=== PATIENT | female | born 1970 | race Caucasian/White ===

== ENCOUNTER 2017-10-07 06:31 | Observation (INO) | payer BC ==
[2017-10-07 08:25] LABS: ABS Basophils 0.1 10^3/ul (0-0.2); ABS Eosinophils 0.2 10^3/ul (0-0.6); ABS Lymphocytes 2.3 10^3/ul (1.0-4.8); ABS Monocytes 0.6 10^3/ul (0-0.8); ABS Neutrophils 6.5 10^3/ul (1.5-7.7); ABS Nucleated RBC 0 10^3/ul; EGFR Non-African American 84.7 (>60); Eosinophil % 2.4 % (0-6); Hematocrit 42 % (35-47); INR 0.96 (0.77-1.02); Lymphocyte % 23.7 % (25-47); Mean Corpuscular HGB Conc 36 g/dl (31-36); Mean Corpuscular Hemoglobin 32 pg (27-31); Mean Corpuscular Volume 89 fL (80-97); Mean Platelet Volume 9 um3 (7.4-10.4); Nucleated Red Blood Cells % 0; Platelet Count 258 10^3/ul (150-450); Red Cell Distribution Width 13 % (10.5-15); White Blood Count 9.6 10^3/ul (3.5-10.8)
[2017-10-07 08:26] LABS: Urine Appearance Clear; Urine Blood 2+ (Negative); Urine Color Straw; Urine Ketones Negative (Negative); Urine Protein Negative (Negative); Urine Specific Gravity 1.008 (1.010-1.030); Urine Urobilinogen Negative (Negative)
--- NOTE | 2017-10-07 08:46 | RAD ---
INDICATION: Lightheaded with elevated blood pressure COMPARISON: Recent comparison chest x-rays dated October 04, 2009 TECHNIQUE: Single AP portable view of the chest was obtained. FINDINGS: Image quality is compromised due to the relative inferiority of a portable chest x-ray. The heart and mediastinum exhibit normal size and contour. The lungs are grossly clear. There is no evidence of a large pleural effusion. Visualized bones are normal for the patient's age. IMPRESSION: No radiographic evidence for acute cardiopulmonary abnormality on this portable chest x-ray.
[2017-10-07] MEDS ORDERED: Acetaminophen TAB* 325 MG PO PRN (11:35)
[2017-10-07] MEDS ORDERED: Ondansetron INJ* 2 MG/ML VIAL IV PRN (11:35)
[2017-10-07] MEDS ORDERED: Valsartan/HCTZ 320/25(NF) TAB PO SCH (12:00)
[2017-10-07] MEDS: amLODIPine TAB* 5 MG PO SCH (12:30)
[2017-10-07] MEDS: Valsartan TAB* 160 MG PO SCH (12:30)
[2017-10-07] MEDS: Hydrochlorothiazide TAB* 25 MG PO SCH (12:30)
[2017-10-07] MEDS ORDERED: Aspirin Low Dose CHEW TAB* 81 MG PO ONE (15:56)
--- NOTE | 2017-10-07 19:39 | HP ---
CC: Andree Torres NP * HISTORY AND PHYSICAL: DATE OF ADMISSION: 10/07/17 PRIMARY CARE PROVIDER: Andree Torres NP ATTENDING PHYSICIAN WHILE IN THE HOSPITAL: Owen Siddiqui MD * (report dictated by Min James NP). CHIEF COMPLAINT: 1. Dizziness. 2. Not feeling well. 3. Left shoulder discomfort. HISTORY OF PRESENT ILLNESS: Ms. Ramirez is a 47-year-old female patient. She carries a history of hypertension, GERD, IBS, seasonal allergies, history of kidney stones and she has a history of borderline diabetes, at one point though she was on metformin. She comes in to our ER today stating that she was at work today. [place] and she was having an episode of just not feeling well, coming on at work. She felt lightheaded, she felt dizzy , she just felt weak. She did not become nauseated or diaphoretic. She did have an episode of shoulder squeezing and tightness in the left shoulder. She states that she has never had discomfort like this previously and she typically can exercise, although she has not exercised in the last month because of a recent Achilles tendon surgery. She was concerned. Her co-workers summoned EMT who were present at the airport. They checked her blood pressure, it was noted to be 160/110. She states she did not eat this morning. She states the discomfort in the arm kind of came and went. By the time she got here to the hospital, her symptoms had resolved. She denied any associated shortness of breath. She did become diaphoretic though with this. There was concern again because of her symptoms and we were asked to evaluate for admission. PAST MEDICAL HISTORY: Significant for: 1. Hypertension. 2. GERD. 3. IBS. 4. Seasonal allergies. 5. Nephrolithiasis. 6. Borderline diabetes. PAST SURGICAL HISTORY: She has had foot surgery. She had a tubal ligation. She has had the Achilles tendon injections. She has had knee surgery on the left knee. MEDICATIONS: Home meds according to the list provided: 1. Norvasc 5 mg daily at noon. 2. Valsartan/hydrochlorothiazide 1 tablet daily at noon. 3. Anaspaz 0.375 mg p.o. daily. 4. Nexium 40 mg daily. 5. Flovent 1 puff inhaled b.i.d. as needed. ALLERGIES TO MEDICATIONS: Include PENICILLIN. FAMILY HISTORY: Her mother had high blood pressure and diabetes. Father had a history of hypertension and lung cancer. SOCIAL HISTORY: She does not smoke. She does not drink. 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 REVIEW OF SYSTEMS: There is no documented fever. She denies having any significant weight change. There was no double vision. She denies having any ear discharge. There was no rhinorrhea. She denies having any sore throat. There was no thyroid enlargement. She denied having any chest discomfort currently. She does admit to having shoulder discomfort into the left side. She denies any abdominal pain. No nausea, no vomiting. There has been no dysuria. No frequency. There was no seizure. No loss of consciousness. No pruritus and no skin ulcerations. Review of 14 systems completed, all others negative. PHYSICAL EXAMINATION GENERAL: At this time, Ms. Ramirez is a 47-year-old female patient. She appears to be well nourished, well developed. She does not appear to be in any acute distress. VITAL SIGNS: Blood pressure 116/76, pulse 68, respirations 16, O2 sat 95%, temperature 96.8. HEENT: Head atraumatic. Eyes: EOM's intact. Sclerae anicteric, not pale. Throat: Oral mucosa appears to be moist. No oropharyngeal erythema. NECK: Supple. LUNGS: Clear to auscultation. No wheezes, rales or rhonchi. HEART: Sounds S1, S2. Regular rate and rhythm. No murmurs, rubs or gallops. ABDOMEN: Soft, flat, nontender. Bowel sounds present EXTREMITIES: Pulses were 2+ throughout. She is moving all 4 extremities with 5 /5 strength. NEUROLOGIC: The patient is awake, alert, oriented x3. Tongue is midline. Table Hand were equal. No gross focal deficits. SKIN: Intact. LABORATORY DATA/DIAGNOSTIC STUDIES: WBC 9.6, RBC 4.70, hemoglobin 15.0, hematocrit of 42, platelet count 258,00. INR 0.96. Sodium 136, potassium 3.5 , chloride 103, bicarb 27, BUN 17, creatinine 0.73, glucose 127, calcium 9.5, magnesium 2.1, total bilirubin 0.6, AST 22, ALT 36, alk phos 53. CK 92. Troponin 0. CRP 4.3. Albumin 4.3. Beta-HCG less than 0.6. TSH of 3.11. Urine showed 2+ blood, 1+ bacteria. Toxicology screen negative. She had chest x-ray obtained today which revealed no radiographic evidence for acute cardiopulmonary abnormality on the portable x-ray. She had an EKG obtained today which shows a normal sinus rhythm, rate is 62. No ST elevations or T-wave inversions were noted. No previous EKG was noted for comparison. She did have a first degree block. Her MD was slightly increased. Old medical records were reviewed. ASSESSMENT AND PLAN: Ms. Ramirez is a 47-year-old female patient coming into the ED today with complaints of dizziness, nausea and some left shoulder discomfort. We were asked to evaluate for admission. She will be admitted under observation status for: 1. Dizziness. This is multifactorial. She states she just was feeling off, she denies sensation of vertigo. She states she did not feel like she is going to pass out. She states she just feels off. It could be related to the fact that she did not eat anything since last night. In addition, this could also be related to the fact that her blood pressure was 160/110. She is on 3 blood pressure medications. I would recommend taking the combination pill in the morning for her and then amlodipine later in the day, as that certainly may have been the culprit as to why she was not feeling well. At this point though , I will keep her upstairs, cycle her troponins, keep her on telemetry and get orthostatic blood pressures and we will continue to follow. 2. Left shoulder discomfort. Again, this could be an anginal equivalent. She is lower risk. I do think we should cycle her troponins. I had ordered a chemical stress test. She cannot do a treadmill stress test at this point, because of the recent Achilles injection, she is not supposed to be running on this, so at this point, I think to be safe, we will get the chemical stress test as the left shoulder discomfort is concerning particularly with the history of hypertension and diabetes. 3. Hypertension. We will continue meds as prescribed. 4. Irritable bowel syndrome. Continue meds as prescribed. 5. Gastroesophageal reflux disease, continue PPI therapy. 6. History of seasonal allergies, not an active issue currently, will be monitored. 7. History of nephrolithiasis, not an active issue. 8. History of borderline diabetes. I am going to get A1c. 9. DVT prophylaxis, low risk. SCD's have been ordered. 10. Fluids, electrolytes, nutrition. Heart healthy diet, then n.p.o. after midnight. 11. Code status: Full code. TIME SPENT: Time spent on the admission was 60 minutes, greater than half the time was spent [id number] with the patient obtaining my history and physical, other half of the time spent going over the plan of care with the patient and implementing plan of care. I did discuss plan of care with my attending, Dr. Siddiqui, who is in agreement. MIN JAMES, ELIJAH [id number]/[id number] #: [id number] MTDJennifer
--- NOTE | 2017-10-07 22:09 | ED ---
Regis Xavier Tiffany, scribed for Anh Frost MD on 10/07/17 at 0741 . Dizziness - HPI Summary HPI Summary: The patient is a 47 year old F presenting to [facility] accompanied by with a chief complaint of dizziness since 05:00 this morning at work. The patient rates the pain 2/10 in severity. Symptoms aggravated by nothing. Symptoms alleviated by nothing. Patient reports whole facial pain. She denies left shoulder pain and chest pain at the time of evaluation. EMS at patients workplace reported that patients blood pressure was 160/110. Ten minutes later, her blood pressure was 130/90 and then 120/80 right before she left for the Emergency Department. Upon evaluation, patients blood pressure was 123/77. Patient reports feeling pins and needles from her toes to shoulders this morning. She has a history of hypertension and takes Diovan and Lodipine daily in the afternoon. She occasionally checks her blood pressure at home. Her blood pressure has been under control recently. Patient reports that her primary care provider is watching her for diabetes. Patient had a normal stress test and normal echo test 10 years ago. Patient had s/p drainage of retroperitoneal drainage 6 years ago. - History Of Current Complaint Chief Complaint: EDDizziness Stated Complaint: LIGHT HEADED, HIGH BP Time Seen by Provider: 10/07/17 07:09 Hx Obtained From: Patient Onset/Duration: Suddenly - 05:00 this morning Severity Currently: Mild - 2/10 Aggravating Factor(s): Nothing Alleviating Factor(s): Nothing Associated Signs And Symptoms: Positive: Negative - Left shoulder pain, chest pain, Other: - Whole facial pain - Allergies/Home Medications Allergies/Adverse Reactions: Allergies Allergy/AdvReac Type Severity Reaction Status Date / Time Penicillins Allergy Rash Verified 10/07/17 09:12 bee stings Allergy Severe Anaphylatic Uncoded 10/19/15 15:31 Shock SEASONAL ALLERGIES Allergy SINUS AND Uncoded 10/19/15 15:31 EYE PROBLEMS Home Medications: Home Medications Esomeprazole(NF) [NexIUM(NF)] 40 mg PO DAILY 10/07/17 [History Confirmed ] Fluticasone HFA 44 mcg(NF) [Flovent Hfa 44 mcg(NF)] 1 puff INH BID PRN 10/07/17 [History Confirmed 10/07/17] Valsartan/HCTZ 320/25(NF) [Diovan Hct 320/25(NF)] 1 tab PO DAILY@1200 10/07/17 [ History Confirmed 10/07/17] amLODIPine TAB* [Norvasc 5 mg TAB*] 5 mg PO DAILY@1200 10/07/17 [History Confirmed 10/07/17] PMH/Surg Hx/FS Hx/Imm Hx Previously Healthy: No Cardiovascular History: Reports: Hx Hypertension - taking medication, Other Cardiovascular Problems/Disorders - HTN Denies: Hx Pacemaker/ICD Respiratory History: Reports: Hx Asthma - Exercised induced GI History: Reports: Hx Gastroesophageal Reflux Disease - taking medication, Other GI Disorders - Infection of sm. intestione 2 yrs ago History: Reports: Hx Kidney Stones Musculoskeletal History: Reports: Hx Arthritis - LEFT ANKLE, Other Musculoskeletal History Denies: Hx Rheumatoid Arthritis, Hx Osteoporosis Sensory History: Reports: Hx Contacts or Glasses Denies: Hx Hearing Aid Opthamlomology History: Reports: Hx Contacts or Glasses Psychiatric History: Denies: Hx Panic Disorder - Cancer History Cancer Type, Location and Year: Pre-cancerous skin lesions, several episodes, most recent 2010 Hx Chemotherapy: No Hx Radiation Therapy: No - Surgical History Surgery Procedure, Year, and Place: 4 Right knee surgeries, most recent 07/2010 , performed at [facility],. [place] [facility] [place],. [place] [facility] [place] [facility] [place] Rt FOOT - FX Hx Anesthesia Reactions: Yes - N/V- LAST SURGERY- VERY GROGGY, [facility] C&DB Infectious Disease History: No Infectious Disease History: Denies: Traveled Outside the [place] in Last 30 Days - Family History Known Family History: Positive: Cardiac Disease - Father, Hypertension, Diabetes , Other - Father had lung cancer - Social History Alcohol Use: Occasionally Hx Substance Use: No Substance Use Type: Reports: None Hx Tobacco Use: No Smoking Status (MU): Never Smoked Tobacco Review of Systems Negative: Chest Pain Musculoskeletal: Negative - Left shoulder pain Positive: Other - Whole facial pain Neurological: Other - Dizziness All Other Systems Reviewed And Are Negative: Yes Physical Exam - Summary Physical Exam Summary: Appearance: Ill-appearing, moderate pain distress, Well-nourished Skin: Warm, color reflects adequate perfusion Head: Normal Head/Face inspection Eyes: Conjunctiva clear ENT: Normal inspection Neck: Supple, no nodes, no JVD. Respiratory: Lungs clear, Normal breath sounds, no respiratory distress Cardio: RRR, No murmur, pulses normal, brisk capillary refill Abdomen: soft, nontender Bowel sounds: present Musculoskeletal: Strength Intact/ ROM intact. No calf tenderness. No edema. Neuro: A&O x3, CN II-XII intact, Motor function 5/5, Sensations intact, Gait WNL Psychological: Normal Triage Information Reviewed: Yes Vital Signs On Initial Exam: Initial Vitals Temp Pulse Resp BP Pulse Ox 96.8 F 75 18 133/86 97 10/07/17 06:33 10/07/17 06:33 10/07/17 06:33 10/07/17 06:33 10/07/17 06:33 Vital Signs Reviewed: Yes Diagnostics - Vital Signs Vital Signs Temp Pulse Resp BP Pulse Ox 10/07/17 07:00 67 17 115/72 95 10/07/17 06:59 66 15 95 10/07/17 06:57 122/79 10/07/17 06:33 96.8 F 75 18 133/86 97 - Laboratory Lab Results: Lab Results 10/07/17 10/07/17 10/07/17 Range/Units 07:50 07:50 07:50 WBC 9.6 (3.5-10.8) 10^3/ul RBC 4.70 (4.0-5.4) 10^6/ul Hgb 15.0 (12.0-16.0) g/dl Hct 42 (35-47) % MCV 89 (80-97) fL MCH 32 H (27-31) pg MCHC 36 (31-36) g/dl RDW 13 (10.5-15) % Plt Count 258 (150-450) 10^3/ul MPV 9 (7.4-10.4) um3 Neut % (Auto) 67.3 (38-83) % Lymph % (Auto) 23.7 L (25-47) % [place] % (Auto) 6.1 (1-9) % Eos % (Auto) 2.4 (0-6) % Baso % (Auto) 0.5 (0-2) % Absolute Neuts (auto) 6.5 (1.5-7.7) 10^3/ul Absolute Lymphs (auto) 2.3 (1.0-4.8) 10^3/ul Absolute Monos (auto) 0.6 (0-0.8) 10^3/ul Absolute Eos (auto) 0.2 (0-0.6) 10^3/ul Absolute Basos (auto) 0.1 (0-0.2) 10^3/ul Absolute Nucleated RBC 0 10^3/ul Nucleated RBC % 0 INR (Anticoag Therapy) (0.77-1.02) Sodium 136 (133-145) mmol/L Potassium 3.5 (3.5-5.0) mmol/L Chloride 103 (101-111) mmol/L Carbon Dioxide 27 (22-32) mmol/L Anion Gap 6 (2-11) mmol/L BUN 17 (6-24) mg/dL Creatinine 0.73 (0.51-0.95) mg/dL Est GFR ( Amer) 109.0 (>60) Est GFR (Non-Af Amer) 84.7 (>60) BUN/Creatinine Ratio 23.3 H (8-20) Glucose 127 H (70-100) mg/dL Calcium 9.5 (8.6-10.3) mg/dL Magnesium 2.1 (1.9-2.7) mg/dL Total Bilirubin 0.60 (0.2-1.0) mg/dL AST 22 (13-39) U/L ALT 36 (7-52) U/L Alkaline Phosphatase 53 (34-104) U/L Total Creatine Kinase 92 (10-223) U/L Troponin I 0.00 (<0.04) ng/mL C-Reactive Protein 4.38 (< 5.00) mg/L Total Protein 6.9 (6.4-8.9) g/dL Albumin 4.3 (3.2-5.2) g/dL Globulin 2.6 (2-4) g/dL Albumin/Globulin Ratio 1.7 (1-3) TSH 3.11 (0.34-5.60) mcIU/mL Beta HCG, Quant < 0.60 mIU/mL Urine Color Straw Urine Appearance Clear Urine pH 6.0 (5-9) Ur Specific [place] 1.008 L (1.010-1.030) Urine Protein Negative (Negative) Urine Ketones Negative (Negative) Urine Blood 2+ H (Negative) Urine Nitrate Negative (Negative) Urine Bilirubin Negative (Negative) Urine Urobilinogen Negative (Negative) Ur Leukocyte Esterase Negative (Negative) Urine WBC (Auto) Trace(0-5/hpf) (Absent) Urine RBC (Auto) Trace(0-2/hpf) (Absent) Ur Squamous Epith Cells Present H (Absent) Urine Bacteria 1+ H (Absent) Urine Glucose Negative (Negative) Urine Opiates Screen (None Detect) Ur Barbiturates Screen (None Detect) Ur Phencyclidine Scrn (None Detect) Ur Amphetamines Screen (None Detect) U Benzodiazepines Scrn (None Detect) Urine Cocaine Screen (None Detect) U Cannabinoids Screen (None Detect) 10/07/17 10/07/17 Range/Units 07:50 07:50 WBC (3.5-10.8) 10^3/ul RBC (4.0-5.4) 10^6/ul Hgb (12.0-16.0) g/dl Hct (35-47) % MCV (80-97) fL MCH (27-31) pg MCHC (31-36) g/dl RDW (10.5-15) % Plt Count (150-450) 10^3/ul MPV (7.4-10.4) um3 Neut % (Auto) (38-83) % Lymph % (Auto) (25-47) % [place] % (Auto) (1-9) % Eos % (Auto) (0-6) % Baso % (Auto) (0-2) % Absolute Neuts (auto) (1.5-7.7) 10^3/ul Absolute Lymphs (auto) (1.0-4.8) 10^3/ul Absolute Monos (auto) (0-0.8) 10^3/ul Absolute Eos (auto) (0-0.6) 10^3/ul Absolute Basos (auto) (0-0.2) 10^3/ul Absolute Nucleated RBC 10^3/ul Nucleated RBC % INR (Anticoag Therapy) 0.96 (0.77-1.02) Sodium (133-145) mmol/L Potassium (3.5-5.0) mmol/L Chloride (101-111) mmol/L Carbon Dioxide (22-32) mmol/L Anion Gap (2-11) mmol/L BUN (6-24) mg/dL Creatinine (0.51-0.95) mg/dL Est GFR ( Amer) (>60) Est GFR (Non-Af Amer) (>60) BUN/Creatinine Ratio (8-20) Glucose (70-100) mg/dL Calcium (8.6-10.3) mg/dL Magnesium (1.9-2.7) mg/dL Total Bilirubin (0.2-1.0) mg/dL AST (13-39) U/L ALT (7-52) U/L Alkaline Phosphatase (34-104) U/L Total Creatine Kinase (10-223) U/L Troponin I (<0.04) ng/mL C-Reactive Protein (< 5.00) mg/L Total Protein (6.4-8.9) g/dL Albumin (3.2-5.2) g/dL Globulin (2-4) g/dL Albumin/Globulin Ratio (1-3) TSH (0.34-5.60) mcIU/mL Beta HCG, Quant mIU/mL Urine Color Urine Appearance Urine pH (5-9) Ur Specific [place] (1.010-1.030) Urine Protein (Negative) Urine Ketones (Negative) Urine Blood (Negative) Urine Nitrate (Negative) Urine Bilirubin (Negative) Urine Urobilinogen (Negative) Ur Leukocyte Esterase (Negative) Urine WBC (Auto) (Absent) Urine RBC (Auto) (Absent) Ur Squamous Epith Cells (Absent) Urine Bacteria (Absent) Urine Glucose (Negative) Urine Opiates Screen None detected (None Detect) Ur Barbiturates Screen None detected (None Detect) Ur Phencyclidine Scrn None detected (None Detect) Ur Amphetamines Screen None detected (None Detect) U Benzodiazepines Scrn None detected (None Detect) Urine Cocaine Screen None detected (None Detect) U Cannabinoids Screen None detected (None Detect) Result Diagrams: 10/07/17 07:50 10/07/17 07:50 Lab Statement: Any lab studies that have been ordered have been reviewed, and results considered in the medical decision making process. - Radiology CXR Radiology Interpretation Completed By: Radiologist - No radiographic evidence for acute cardiopulmonary abnormality on this portable chest x-ray. ED physician has reviewed this radiology report. - EKG 07:40 Cardiac Rate: NL EKG Rhythm: Sinus Rhythm - [address] Segment: Non-Specific Ectopy: None EKG Interpretation: Prolonged AV conduction time (216). Nml IVCT, nml QTc, nml axis. Non-STEMI. EKG Comparison: No Significant Change - No prior to compare Re-Evaluation - Re-Evaluation First Eval Re-Evaluation Time: 10:00 Change: Unchanged Comment: Patients blood pressure has improved. She is made aware that she may need to stay longer to get second troponin test. Patient complains of headache. Dizzy Course/Dx - Course Course Of Treatment: Allergies noted. High blood pressure noted. Patient medications reviewed this visit. EKG reveals prolonged AV conduction time (216) . No prior to compare. Dr. Garcia (interventionalist cardiology) at 0804 advised that patient is non-STEMI. CXR reveals, per radiologist, No radiographic evidence for acute cardiopulmonary abnormality on this portable chest x-ray. - Provider Notifications Discussed Care Of Patient With: Brenda Garcia Time Discussed With Above Provider: 08:04 Instructed by Provider To: Other - Dr. Garcia (interventionalist cardiology) at 0804 advised that patient is non-stemi. Discharge - Discharge Plan Condition: Stable Disposition: ADMITTED TO [facility] documentation as recorded by the Regis castro Tiffany accurately reflects the service I personally performed and the decisions made by , Anh Frost MD.
[2017-10-08 06:55] LABS: ABS Basophils 0.1 10^3/ul (0-0.2); ABS Eosinophils 0.3 10^3/ul (0-0.6); ABS Lymphocytes 2.9 10^3/ul (1.0-4.8); ABS Monocytes 0.6 10^3/ul (0-0.8); ABS Neutrophils 4.6 10^3/ul (1.5-7.7); ABS Nucleated RBC 0 10^3/ul; Eosinophil % 3.9 % (0-6); Hematocrit 42 % (35-47); Hemoglobin 14.8 g/dl (12.0-16.0); Lymphocyte % 34.1 % (25-47); Mean Corpuscular HGB Conc 35 g/dl (31-36); Mean Corpuscular Hemoglobin 32 pg (27-31); Mean Corpuscular Volume 90 fL (80-97); Mean Platelet Volume 9 um3 (7.4-10.4); Nucleated Red Blood Cells % 0; Platelet Count 275 10^3/ul (150-450); Red Blood Count 4.69 10^6/ul (4.0-5.4); Red Cell Distribution Width 13 % (10.5-15); White Blood Count 8.5 10^3/ul (3.5-10.8)
[2017-10-08 07:12] LABS: EGFR Non-African American 73.1 (>60)
[2017-10-08] MEDS ORDERED: Omeprazole CAP* 20 MG PO SCH (07:30)
[2017-10-08] MEDS ORDERED: Aspirin EC Low Dose* 81 MG TAB.EC PO SCH (09:00)
[2017-10-08] MEDS ORDERED: Hyoscyamine TAB* 0.125 MG PO SCH ×2 (09:00)
[2017-10-08 11:06] VITALS: BP 113/73
--- NOTE | 2017-10-08 11:06 | RAD ---
Edited for charges. INDICATION: Chest and left shoulder pain COMPARISON: Chest x-ray October 07, 2017 TECHNIQUE: SPECT imaging was performed. Rest images were acquired following the intravenous injection of 10.2 millicuries of technetium 99m tetrofosmin at 0650 hours. At 1000 hours stress images were acquired following the intravenous administration of 25.32 millicuries of technetium 99m tetrofosmin. The patient received intravenous Lexiscan prior to the stress image acquisition. FINDINGS: There are no defects of the stress-induced or fixed nature. The cardiac chamber size is normal. There are no wall motion abnormalities. The ejection fraction is calculated at 74% during stress. IMPRESSION: No scintigraphic evidence of ischemia or infarction. ASSESSMENT: Low risk Based on imaging criteria from ACC/AHA 2002 Guideline Update for the Management of Patients With Chronic Stable Angina Table 23. Noninvasive Risk Stratification. MTDD
[2017-10-08] MEDS: amLODIPine TAB* 5 MG PO SCH (11:32)
[2017-10-08] MEDS: Hydrochlorothiazide TAB* 25 MG PO SCH (11:32)
[2017-10-08] MEDS: Valsartan TAB* 160 MG PO SCH (11:32)
[2017-10-08] MEDS ORDERED: Regadenoson* 0.4 MG/5 ML SYRINGE ONE (14:38)
--- NOTE | 2017-10-09 03:02 | DS ---
CC: Andree Torres NP * DISCHARGE SUMMARY: DATE OF ADMISSION: DATE OF DISCHARGE: 10/08/17 HISTORY: This 47-year-old woman presented with left shoulder discomfort, dizziness, some tingling of her entire body [place] the [place] a part-time job. She came promptly to the hospital. She still had some shoulder discomfort and tingling throughout the day. This has never happened to her before. I note she does not do any regular exercise. She has never smoked. She has not had similar problems in the past. She had no further problems in the hospital. She was admitted to a telemetry unit, 3 troponins were done and were all normal. She had a nuclear medicine stress test, which showed no evidence of ischemia or infarction. Ejection fraction was normal on the nuclear scan. She was noted to have some bradycardia while she was sleeping. Blood pressure on the morning of discharge was 115/73. FINAL DIAGNOSES: 1. Atypical chest and shoulder pain. 2. Hypertension. 3. Gastroesophageal reflux disease. 4. Irritable bowel syndrome. DISCHARGE MEDICATIONS: 1. Hyoscyamine 0.375 mg daily. 2. Amlodipine 5 mg daily. 3. Valsartan hydrochlorothiazide 320/25 one daily. 4. Fluticasone HFA 44 mcg 1 puff b.i.d. p.r.n. 5. Esomeprazole 40 mg daily. [id number]/[id number] #: [id number] MTDD
== END 2017-10-08 14:45 | disposition home or self-care (01) ==
LOC: ED 06:31 → MEDTELE 11:30
PROVIDERS: ADMIT Internal Medicine; ATTEND Internal Medicine
DX: R07.89 Other chest pain (principal); M25.512 Pain in left shoulder; R42 Dizziness and giddiness; I10 Essential (primary) hypertension; K58.9 Irritable bowel syndrome, unspecified; K21.9 Gastro-esophageal reflux disease without esophagitis; J30.2 Other seasonal allergic rhinitis; Z87.442 Personal history of urinary calculi
CPT/HCPCS: 36415; 71045; 78452; 80048; 80053; 80061; 80307; 81003; 81015; 82550; 83036; 83735; 84443; 84484; 84702; 85025; 85610; 86140; 87086; 93005; 93017; 96374; 99284; A9270-GY; A9502; G0378; J2785

== ENCOUNTER 2018-08-06 16:36 | Emergency (ER) | payer BC ==
[2018-08-06 17:05] VITALS: BP 130/80
--- NOTE | 2018-08-06 17:20 | UC ---
Throat Pain/Nasal Mitchell HPI - HPI Summary HPI Summary: 48-year-old female comes in with a chief complaint of runny nose nasal congestion and yellow rhinorrhea going on for 3 weeks. She's tried over-the- counter remedies which helped some but then she gets worse again. She is having some sinus pressure. No chest congestion. She's not smoker. Patient reports she's having continued right thumb pain that occurred some time ago while she was throwing an item and it injured her right thumb. Pain is worse on the radial aspect of the PIP of the right thumb. No skin break no weakness or numbness. She recently got a thumb spica splint which does help with the pain. - History of Current Complaint Chief Complaint: UCGeneralIllness Stated Complaint: LT EYE,RT THUMB,SINUS COMPLAINT Time Seen by Provider: 08/06/18 17:03 Hx Last Menstrual Period: 09/21/15 Pain Intensity: 8 - Allergies/Home Medications Allergies/Adverse Reactions: Allergies Allergy/AdvReac Type Severity Reaction Status Date / Time Penicillins Allergy Rash Verified 08/06/18 17:05 bee stings Allergy Severe Anaphylatic Uncoded 08/06/18 17:05 Shock SEASONAL ALLERGIES Allergy SINUS AND Uncoded 08/06/18 17:05 EYE PROBLEMS Home Medications: Home Medications Irbesartan/Hydrochlorothiazide [Irbesartan-Hctz 150-12.5 mg Tb] 1 each PO DAILY 08/06/18 [History Confirmed 08/06/18] PMH/Surg Hx/FS Hx/Imm Hx Previously Healthy: Yes - Surgical History Surgical History: Yes Surgery Procedure, Year, and Place: 4 Right knee surgeries, most recent 07/2010 , performed at [facility],. [place] [facility] [place],. cyst [place] [facility] [place] [facility] [place] Rt FOOT - FX - Family History Known Family History: Positive: None, Cardiac Disease - Father, Hypertension, Diabetes, Other - Father had lung cancer - Social History Alcohol Use: Occasionally Substance Use Type: None Smoking Status (MU): Never Smoked Tobacco - Immunization History Most Recent Influenza Vaccination: 2016 Most Recent Tetanus Shot: unknown Most Recent Pneumonia Vaccination: unknown Review of Systems All Other Systems Reviewed And Are Negative: Yes Constitutional: Positive: Negative Skin: Positive: Negative Eyes: Positive: Negative ENT: Positive: Sore Throat, Nasal Discharge, Sinus Congestion, Sinus Pain/ Tenderness Respiratory: Positive: Negative Cardiovascular: Positive: Negative Gastrointestinal: Positive: Negative Motor: Positive: Negative Neurovascular: Positive: Negative Musculoskeletal: Positive: Other: - SEE HPI Neurological: Positive: Negative Psychological: Positive: Negative Is Patient Immunocompromised?: No Physical Exam Triage Information Reviewed: Yes Appearance: No Pain Distress, Well-Nourished, Ill-Appearing - MILD Vital Signs: Initial Vital Signs Temp 98.5 F 08/06/18 17:00 Pulse 73 08/06/18 17:00 Resp 16 08/06/18 17:00 BP 130/80 08/06/18 17:00 Pulse Ox 98 08/06/18 17:00 Vital Signs Reviewed: Yes Eye Exam: Normal Eyes: Positive: Conjunctiva Clear ENT: Positive: Pharyngeal erythema, Nasal congestion, Nasal drainage, TMs normal Neck exam: Normal Neck: Positive: Supple Respiratory: Positive: Lungs clear, Normal breath sounds, No respiratory distress Cardiovascular: Positive: RRR Musculoskeletal: Positive: Other: - 5 out of 5. Right thumb is tender to palpation on the radial aspect of the PIP and she has pain when she is attempting to abduct the thumB. Thumb has full range of motion normal capillary refill no sensation deficit. Neurological Exam: Normal Neurological: Positive: Alert, Muscle Tone Normal Psychological Exam: Normal Psychological: Positive: Age Appropriate Behavior Skin Exam: Normal Throat Pain/Nasal Course/Dx - Course Course Of Treatment: Order Information: THUMB RIGHT. Accession Number: [id number]. CPT: 65110. INDICATION: Thumb pain since injury February 2018. COMPARISON: None. TECHNIQUE: 3 views of the right thumb were obtained. FINDINGS: The bones are normal alignment. Joint spaces appear maintained. No fracture is. seen. IMPRESSION: There is no radiographically apparent fracture or dislocation involving the. right thumb. If the patient's symptoms persist, follow-up imaging is recommended. . <Electronically signed by John Vences MD in OV> 08/06/18 1801. Patient is allergic to penicillin. SHe reports that azithromycin helps her and therefore I prescribed azithromycin. I'm suspecting a lateral collateral ligament injury of the right thumb and I recommended follow-up with orthopedics hands. Patient has a thumb spica splint she's been wearing she can continue to use that. - Differential Dx/Diagnosis Provider Diagnosis: Conjunctivitis, Sinusitis, Sprain of right thumb Discharge - Sign-Out/Discharge Documenting (check all that apply): Patient Departure All imaging exams completed and their final reports reviewed: Yes - Discharge Plan Condition: Stable Disposition: HOME Prescriptions: Azithromyxin GET (NF) [Z-Get (Zithromax) 250 mg tabs #6] 2 tab PO .TODAY, THEN 1 DAILY #6 tab Tobramycin 0.3% OPHTH.TABITHA* 1 drop LEFT EYE Q4H #1 btl Patient Education Materials: Skier's Thumb (ED), Sinusitis (ED), Finger Sprain (ED), Conjunctivitis (ED) Referrals: Andree Torres NP [Primary Care Provider] - Alanis De Leon MD [Medical Doctor] - Additional Instructions: FOLLOW UP WITH ORTHOPEDICS FOR YOUR RIGHT THUMB INJURY. FOLLOW UP WITH YOUR PRIMARY CARE DOCTOR IF NOT COMPLETELY IMPROVED. GET RECHECKED FOR ANY WORSENING OF YOUR CONDITION OR QUESTIONS OR CONCERNS. - Billing Disposition and Condition Condition: STABLE Disposition: Home
== END 2018-08-06 17:34 | disposition home or self-care (01) ==
LOC: UCCORT 16:36
DX: H10.9 Unspecified conjunctivitis (principal); J32.9 Chronic sinusitis, unspecified; S63.601A Unspecified sprain of right thumb, initial encounter; Z88.2 Allergy status to sulfonamides; X50.0XXA Overexertion from strenuous movement or load, initial encounter; Y92.9 Unspecified place or not applicable
CPT/HCPCS: 99212; G0463

== ENCOUNTER 2018-08-21 10:16 | Emergency (ER) | payer BC ==
--- OUTSIDE RECORDS SUMMARY | 2018-08-21 10:22 | XMS REPORT | Continuity of Care Document ---
:1970 External Reference #:[id number] Author Name Coleen Griffith Care Team Providers Name Role Phone Andree Torres NP Primary Care Physician Unavailable Payers Type Date Identification Numbers Payment Provider Subscriber Effective: Policy Number: [id number] BS Facets Homa Ramiresnett 2011 PayID: [id number] [address] [address] [place] [address] Effective: 2010 Policy Number: [id number] BS Of [employer]ear Homa Ramirez Expires: 2011 Group Number: [id number] [address] [address] PayID: [id number] [place] [address] Advance Directives Type Date Description Status Comment Other Directive 02/04/2014 Health Care Proxy Current and Verified Problems Date Description Provider Status Onset: 04/09/2011 Impaired fasting glycaemia Andree Torres, N.P. Active Onset: 04/09/2011 Asthma without status asthmaticus Andree Torres, N.P. Active Onset: 06/06/2015 Essential hypertension Andree Torres, N.P. Active Onset: 08/01/2015 Localized, primary osteoarthritis Bouchra Elizabeth M.D. 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-BC Onset: 12/27/2017 Hypersomnia María Cooley DNP, MIHAI, Active ECHOCARDIOGRAPH TECHNICIAN-BC Onset: 12/27/2017 Body mass index 30+ - obesity María Cooley DNP, RN, Active ECHOCARDIOGRAPH TECHNICIAN-BC Family History Date Family Member(s) Problem(s) Comments General Cancer General Diabetes General COPD : (age 52 Father due to Cancer, Years) Lung Father Hypertension Mother HTN DM age 70 Children 2 1 Daughter - Healthy age 21 1 Daughter - Healthy age 19 Siblings 1 1 Brother - HTN, thyroid disease Social History Type Date Description Comments Sex Unknown Marital Status Lives With 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 [employer] Tobacco Use Start: Unknown Never Smoked Cigarettes ETOH Use Occasionally consumes socially once per beer month Tobacco Use Start: Unknown Patient has never smoked Recreational Drug Use Denies Drug Use Tobacco Use Start: Unknown Secondhand smoke As a child, to age exposure 18 Smoking Status Reviewed: 08/08/18 Secondhand smoke As a child, to age exposure 18 Exercise Type/Frequency Exercises sporadically Allergies, Adverse Reactions, Alerts Date Description Reaction Status Severity Comments 04/27/2010 Penicillin HANDS ON FIRE FEELING Active Severe 04/27/2010 Bee Sting Active Medications Medication Date Status Form Strength Qnty SIG Indications Ordering Provider Irbesartan-Hyd 03/25 Active Tablets 300-12.5mg 90tab 1 by mouth Andree rochothiaz s every day Varn, N.P. de Metformin HCL 02/21 Active Tablets 500mg 60tab take one Z68.35 s tablet by Varn, N.P. mouth twice a day Flovent HFA 02/06 Active Aerosol 44mcg/Act 1unit 2 puffs J45.30 s twice Varn, N.P. daily Epipen 2-Get 01/10 Active Solution 0.3mg/0.3ML 2unit use as Auto-Inject s needed for Varn, N.P. bee sting. Ventolin HFA 12/05 Active Aerosol 108(90Base) 1inha 1 to 2 J45.30 mcg/Act ler inhalation Varn, N.P. s every 4 hours as needed Hyoscyamine 08/13 Active Tablets ER 0.375mg 90tab 1 po qd Andree Sulfate ER /2012 12HR s Varn, N.P. Fluticasone 08/13 Active Suspension 50mcg/Act 16gm 1 - 2 J06.9 Andree Propionate sprays Varn, N.P. each nostril daily as needed Valtrex 06/26 Active Tablets 1gm 12tab 2 tablets s by mouth Varn, N.P. and repeat in 12 hours prn Amlodipine 08/01 Active Tablets 5mg 90tab take 1 I10 Sheyla Besylate s tablet Cotton, daily M.D. Nexium 07/[address] 40mg 30cap take 1 Dee s capsule by Yola, mouth once M.D., FACP daily Diovan HCT 07/06 Hx Tablets 320-25mg 90tab 1 by mouth s every day Varn, N.P. - 07/18 Cipro 07/03 Hx Tablets 250mg 14tab one by Andree /2016 s mouth Varn, N.P. - twice 07/06 daily 7 days Proair HFA 12/05 Hx Aerosol 108(90Base) 1unit 1 to 2 J45.30 mcg/ac s inhalation Yola, - s before M.D., FACP 02/06 exercise or prn Contour Test 06/16 Hx 100un Test its fasting Varn, N.P. - and 2 10/14 hours after dinner. Singulair 12/03 Hx Tablets 10mg 30tab 1 by mouth 477.9 s every day Varn, N.P. - 07/18 Biaxin 01/06 Hx Tablets 500mg 20tab 1 tab po 461.0 Nikia s bid Ernie Osman M.D. 01/13 Nasonex 01/06 Hx Suspension 50mcg/Act 1unit 2 sp nasal 461.0 Nikia s every day Ernie Osman M.D. 08/13 Valsartan-Hydr 12/21 Hx Tablets 320-25mg 90tab take 1 Dee ochlorothiazid s tablet Yola, e - daily M.D., FACP 03/25 Flovent HFA 06/26 Hx Aerosol 44mcg/Act 1unit 2 puffs 493.90 s twice Varn, N.P. - daily 08/13 Azithromycin 09/04 Hx Tablets 250mg 6tabs two tabs 461.9 day one, Yola, - one daily M.D., FACP 09/14 till Proair HFA 09/04 Hx Aerosol 108(90Base) 1unit 1 to 2 461.9 mcg/ac s inhalation Yola, - s before M.D., FACP 08/13 exercise or prn Fluticasone 09/04 Hx Suspension 50mcg/Act 1Mont 2 sprays 461.9 Dee Propionate h each Yola, - nostril M.D., FACP 07/28 daily needed Nexium 04/[address] 20mg 90cap 1 po qd s Ernie Aceves M.D., FACP 07/09 Ciprofloxacin 04/09 Hx Tablets 500mg 20tab one by Dee HCL s mouth Yola, - twice M.D., FACP 04/19 daily for 10 days Metronidazole 04/09 Hx Tablets 500mg 21tab one tablet s by mouth 3 Yola, - times M.D., FACP 04/16 daily for 7 days Diovan HCT 12/15 Hx Tablets 320-25mg 90tab Take 1 s Tablet Yola, - Daily M.D., FACP 12/21 Valtrex 10/27 Hx Tablets 1gm 21tab one po tid s for 7 days Ernie Aceves M.D., FACP 06/25 Diflucan 10/24 Hx Tablets 150mg 2tabs sig 1 po repeat in Yola, - 3 days if M.D., FACP 10/30 needed Lidocaine HCL 10/24 Hx Gel 2% 30ml apply prn Dee Jelly Ernie Aceves M.D., FACP 06/25 Contour Test 01/26 Hx 100un use as Andree Strips its directed Varn, N.P. - 06/15 Lancets 01/26 Hx Contour 100un use as Dee Glucometer its directed Ernie Aceves M.D., [facility] 10/14 Epipen Auto 01/26 Hx Device 2unit prn bee Andree Injector /2009 s sting Varn, N.P. - 02/23 Diovan HCT 01/26 Hx Tablets 160-12.5mg 90tab 1 tablet s daily Yola, - M.D., [facility] 12/15 Advair Diskus 01/26 Hx Aerosol 250-50mcg/D 1unit 1 puff ose s twice a Yola, - day M.D., [facility] 04/09 Singulair 01/26 Hx Tablets 10mg 30tab 1 tablet s daily Yola - M.DJolanta, [facility] 04/09 Nasacort Aq 01/26 Hx Aerosol 55mcg/Act 1unit use 1 s sprays in Yola, - each M.D., [facility] 04/09 nostril /2010 Twice A Day Pantoprazole 01/26 Hx 40mg 1 capsule Dee Sodium daily as Yola - needed M.D., [facility] 04/09 Metformin ER 01/26 Hx 500mg 30uni 1 Tablet Sheyla /2010 ts with Cotton, - dinner M.D. 07/28 Xyzal 01/26 Hx 5mg 30uni 1 tablet ts daily Yola - M.Jennifer., [facility] 06/25 Xifaxan Hx Tablets 550mg 42tab 1/2 tablet Unknown /0000 s by mouth - twice 04/09 Ciprofloxacin Hx Tablets 500mg one by Unknown HCL /0000 mouth - twice 02/06 daily for 5 days Esomeprazole Hx Capsules DR 40mg 1 by mouth Unknown Magnesium /0000 every day - 09/25 Immunizations CPT Code Status Date Vaccine Reaction Lot # [id number] Given 05/24/2017 Influenza Virus Vaccine, Quadrivalent, Split, Preservative Free [id number] Given 06/06/2016 Influenza Virus Vaccine, no reaction noted ... [id number] Quadrivalent, Split Virus, [place] [id number] Given 05/20/2015 Influenza Virus Vaccine, Quadrivalent, Split, Preservative Free [id number] Given 05/21/2014 Fluvirin Im 3Yrs And Older 42327 Given 07/28/2012 Tdap - [id number] Tetanus/Diptheria/Acellular Pertussis Q2037 Given 06/26/2012 Fluvirin Im 3Yrs And Older [id number] Given 06/25/2011 Pneumonia Vaccine [id number] 27932 Given 10/27/2009 Influenza Virus Vaccine, Pandemic Formulation 44152 Given 10/27/2009 Administration Swine Flu Shot Vital Signs Date Vital Result Comment 08/08/2018 3:43pm Height 68.5 inches 5'8.50" Weight 217.50 lb Heart Rate 88 /min BP Systolic 112 mmHg BP Diastolic 74 mmHg Body Temperature 97.7 F O2 % BldC Oximetry 95 % BMI (Body Mass Index) 32.6 kg/m2 05/27/2018 2:34pm Height 68.5 inches 5'8.50" Weight 219.38 lb Heart Rate 72 /min BP Systolic Sitting 120 mmHg Rue large cuff BP Diastolic Sitting 78 mmHg Rue large cuff Respiratory Rate 14 /min O2 % BldC Oximetry 97 % On Ra BMI (Body Mass Index) 32.9 kg/m2 03/25/2018 10:09am Height 68.5 inches 5'8.50" Weight 224.00 lb Heart Rate 78 /min BP Systolic 100 mmHg BP Diastolic 60 mmHg Body Temperature 97.5 F O2 % BldC Oximetry 97 % BMI (Body Mass Index) 33.6 kg/m2 02/24/2018 8:19am Height 68.5 inches 5'8.50" Weight 224.50 lb Heart Rate 72 /min BP Systolic Sitting 112 mmHg Rue large cuff BP Diastolic Sitting 76 mmHg Rue large cuff Respiratory Rate 16 /min O2 % BldC Oximetry 97 % On Ra BMI (Body Mass Index) 33.6 kg/m2 02/21/2018 9:01am Height 68.5 inches 5'8.50" Weight 230.25 lb Heart Rate 67 /min BP Systolic 120 mmHg BP Diastolic 72 mmHg Body Temperature 97.1 F O2 % BldC Oximetry 97 % BMI (Body Mass Index) 34.5 kg/m2 12/27/2017 11:12am Height 68 inches 5'8" Weight 226.50 lb Heart Rate 74 /min BP Systolic Sitting 118 mmHg Lue large cuff BP Diastolic Sitting 82 mmHg Lue large cuff Respiratory Rate 16 /min O2 % BldC Oximetry 97 % On Ra BMI (Body Mass Index) 34.4 kg/m2 11/08/2017 7:13am Height 68 inches 5'8" Weight 227.00 lb Heart Rate 72 /min BP Systolic Sitting 104 mmHg BP Diastolic Sitting 82 mmHg Respiratory Rate 14 /min O2 % BldC Oximetry 97 % BMI (Body Mass Index) 34.5 kg/m2 Neck Circumference in inches 14.25 10/16/2017 2:51pm Height 68 inches 5'8" Weight 221.00 lb Heart Rate 68 /min BP Systolic 124 mmHg Rue large cuff BP Diastolic 78 mmHg Rue large cuff BP Systolic Sitting 124 mmHg Lue BP Diastolic Sitting 82 mmHg Lue BP Systolic Standing 102 mmHg Lue BP Diastolic Standing 80 mmHg Lue Respiratory Rate 16 /min BMI (Body Mass Index) 33.6 kg/m2 Ejection Fraction 67% 06/05/11 10/14/2017 10:18am Weight 220.75 lb Heart Rate 73 /min BP Systolic 142 mmHg BP Diastolic 80 mmHg Body Temperature 97.3 F O2 % BldC Oximetry 97 % 02/06/2017 1:27pm Height 68 inches 5'8" Weight 211.50 lb Heart Rate 70 /min BP Systolic 112 mmHg BP Diastolic 66 mmHg Body Temperature 98.0 F O2 % BldC Oximetry 98 % BMI (Body Mass Index) 32.2 kg/m2 07/18/2016 3:13pm Weight 215.00 lb Heart Rate 80 /min BP Systolic Sitting 124 mmHg BP Diastolic Sitting 86 mmHg O2 % BldC Oximetry 98 % 06/06/2016 8:41am Weight 212.00 lb Heart Rate 66 /min BP Systolic Sitting 124 mmHg BP Diastolic Sitting 82 mmHg Respiratory Rate 15 /min Body Temperature 98.1 F O2 % BldC Oximetry 98 % 12/06/2015 9:16am Height 68 inches 5'8" Weight 214.00 lb Heart Rate 68 /min BP Systolic Sitting 124 mmHg BP Diastolic Sitting 82 mmHg Respiratory Rate 16 /min Body Temperature 98.1 F O2 % BldC Oximetry 98 % BMI (Body Mass Index) 32.5 kg/m2 08/01/2015 11:54am Height 69 inches 5'9" Weight 200.00 lb Pain Level 4 BMI (Body Mass Index) 29.5 kg/m2 06/22/2015 3:05pm Height 69 inches 5'9" Weight 200.00 lb Heart Rate 76 /min BP Systolic 113 mmHg BP Diastolic 76 mmHg BMI (Body Mass Index) 29.5 kg/m2 06/06/2015 8:42am Height 68.5 inches 5'8.50" Weight 198.00 lb Heart Rate 54 /min BP Systolic Sitting 128 mmHg BP Diastolic Sitting 85 mmHg Respiratory Rate 14 /min Body Temperature 98.0 F O2 % BldC Oximetry 98 % BMI (Body Mass Index) 29.7 kg/m2 12/03/2014 3:24pm Height 68.5 inches 5'8.50" Weight 202.00 lb Heart Rate 69 /min BP Systolic Sitting 102 mmHg BP Diastolic Sitting 60 mmHg O2 % BldC Oximetry 98 % BMI (Body Mass Index) 30.3 kg/m2 02/04/2014 8:44am Weight 189.25 lb Heart Rate 68 /min BP Systolic Sitting 124 mmHg BP Diastolic Sitting 70 mmHg Peak Flow Meter 500 450; 480; 500 12/08/2013 9:11am Height 68.75 inches 5'8.75" Weight 208.00 lb Heart Rate 68 /min BP Systolic Sitting 134 mmHg BP Diastolic Sitting 76 mmHg Respiratory Rate 16 /min BMI (Body Mass Index) 30.9 kg/m2 08/13/2013 9:12am Height 68.75 inches 5'8.75" Weight 202.75 lb Heart Rate 84 /min BP Systolic 124 mmHg BP Diastolic 64 mmHg BMI (Body Mass Index) 30.2 kg/m2 02/09/2013 1:50pm Weight 202.00 lb Heart Rate 60 /min BP Systolic Sitting 134 mmHg BP Diastolic Sitting 80 mmHg 01/13/2013 2:27pm Height 68.5 inches 5'8.50" Weight 200.50 lb Heart Rate 88 /min BP Systolic Sitting 120 mmHg BP Diastolic Sitting 82 mmHg BMI (Body Mass Index) 30.0 kg/m2 01/06/2013 3:32pm Weight 200.00 lb Heart Rate 80 /min BP Systolic Sitting 140 mmHg BP Diastolic Sitting 100 mmHg Body Temperature 98.4 F 07/28/2012 3:47pm Height 68.25 inches 5'8.25" Weight 210.50 lb Heart Rate 62 /min BP Systolic Sitting 120 mmHg BP Diastolic Sitting 78 mmHg Peak Flow Meter 535 530; 620 BMI (Body Mass Index) 31.8 kg/m2 06/26/2012 9:05am Height 68.25 inches 5'8.25" Weight 203.00 lb Heart Rate 88 /min BP Systolic Sitting 122 mmHg BP Diastolic Sitting 72 mmHg BMI (Body Mass Index) 30.6 kg/m2 12/24/2011 3:56pm Height 68.25 inches 5'8.25" Weight 202.00 lb Heart Rate 84 /min BP Systolic Sitting 124 mmHg BP Diastolic Sitting 64 mmHg BMI (Body Mass Index) 30.5 kg/m2 09/04/2011 3:52pm Height 68.25 inches 5'8.25" Weight 198.00 lb Heart Rate 64 /min BP Systolic Sitting 112 mmHg BP Diastolic Sitting 76 mmHg BMI (Body Mass Index) 29.9 kg/m2 08/01/2011 3:36pm Height 68.25 inches 5'8.25" Weight 203.75 lb Heart Rate 78 /min BP Systolic Sitting 120 mmHg l BP Diastolic Sitting 70 mmHg l BMI (Body Mass Index) 30.8 kg/m2 06/25/2011 2:55pm Height 68.25 inches 5'8.25" Weight 203.00 lb Heart Rate 68 /min BP Systolic Sitting 142 mmHg BP Diastolic Sitting 78 mmHg BMI (Body Mass Index) 30.6 kg/m2 05/15/2011 1:19pm Height 68.75 inches 5'8.75" Weight 197.00 lb Heart Rate 62 /min BP Systolic Sitting 156 mmHg BP Diastolic Sitting 80 mmHg BMI (Body Mass Index) 29.3 kg/m2 04/17/2011 1:09pm Height 68.75 inches 5'8.75" Weight 203.00 lb Heart Rate 80 /min BP Systolic Sitting 130 mmHg BP Diastolic Sitting 78 mmHg BMI (Body Mass Index) 30.2 kg/m2 04/09/2011 2:22pm Height 68.75 inches 5'8.75" Weight 207.00 lb Heart Rate 80 /min BP Systolic Sitting 118 mmHg BP Diastolic Sitting 82 mmHg Body Temperature 98.4 F BMI (Body Mass Index) 30.8 kg/m2 10/24/2010 4:17pm Weight 204.50 lb Heart Rate 80 /min BP Systolic 120 mmHg BP Diastolic 76 mmHg 04/28/2010 8:32am Weight 207.38 lb Heart Rate 80 /min BP Systolic 124 mmHg BP Diastolic 78 mmHg Results Test Date Facility Test Result H/L Range Note Lipid Profile 02/18/2018 [facility] Triglycerides 107 mg/dL 1 (Trig/Chol/HDL) [address] [facility] [place] [address] [phone] Cholesterol 81 mg/dL 2 HDL Cholesterol 36.8 mg/dL 3 LDL Cholesterol 23 mg/dL 4 Laboratory test 02/18/2018 [facility] Hemoglobin A1c 5.8 % High 4.0-5.[address] (Glyco HGB) [place] [address] [phone] Comp Metabolic 02/18/2018 [facility] Sodium 138 N 135-[address] mmol/[place] [address] [phone] Potassium 3.7 mmol/L N 3.5-5.0 Chloride 101 mmol/L N 101-111 Co2 Carbon Dioxide 29 mmol/L N 22-32 Anion Gap 8 mmol/L N 2-11 Glucose 115 mg/dL High 70-100 Blood Urea Nitrogen 12 mg/dL N 6-24 Creatinine 0.78 mg/dL N 0.51-0.95 BUN/Creatinine Ratio 15.4 N 8-20 Calcium 9.2 mg/dL N 8.6-10.3 Total Protein 6.3 g/dL Low 6.4-8.9 Albumin 4.0 g/dL N 3.2-5.2 Globulin 2.3 g/dL N 2-4 Albumin/Globulin Ratio 1.7 N 1-3 Total Bilirubin 0.80 mg/dL N 0.2-1.0 Alkaline Phosphatase 48 U/L N 34-104 Alt 66 U/L High 7-52 Ast 49 U/L High 13-39 Egfr Non- 78.5 >60 Egfr 95.0 >60 6 Urinalysis Profile 10/07/2017 [facility] Urine Color Straw [address] [place] [address] [phone] Urine Appearance Clear Urine Specific Dodson 1.008 Low 1.010-1.030 Urine pH 6.0 N 5-9 Urine Urobilinogen Negative Negative Urine Ketones Negative Negative Urine Protein Negative Negative Urine Leukocytes Negative Negative Urine Blood 2+ Abnormal Negative Urine Nitrite Negative Negative Urine Bilirubin Negative Negative Urine Glucose Negative Negative Urine White Blood Cell Trace(0-5/hpf) Absent Urine Red Blood Cell Trace(0-2/hpf) Absent Urine Bacteria 1+ Abnormal Absent Urine Squamous Epithelial Cell Present Abnormal Absent CBC Auto Diff 10/07/2017 [facility] White Blood 9.6 10^3/uL N 3.5-10.[address] [place] [address] [phone] Red Blood Count 4.70 10^6/uL N 4.0-5.4 Hemoglobin 15.0 g/dL N 12.0-16.0 Hematocrit 42 % N 35-47 Mean Corpuscular Volume 89 fL N 80-97 Mean Corpuscular Hemoglobin 32 pg High 27-31 Mean Corpuscular HGB Conc 36 g/dL N 31-36 Red Cell Distribution Width 13 % N 10.5-15 Platelet Count 258 10^3/uL N 150-450 Mean Platelet Volume 9 um3 N 7.4-10.4 Abs Neutrophils 6.5 10^3/uL N 1.5-7.7 Abs Lymphocytes 2.3 10^3/uL N 1.0-4.8 Abs Monocytes 0.6 10^3/uL N 0-0.8 Abs Eosinophils 0.2 10^3/uL N 0-0.6 Abs Basophils 0.1 10^3/uL N 0-0.2 Abs Nucleated RBC 0 10^3/uL Granulocyte % 67.3 % N 38-83 Lymphocyte % 23.7 % Low 25-47 Monocyte % 6.1 % N 1-9 Eosinophil % 2.4 % N 0-6 Basophil % 0.5 % N 0-2 Nucleated Red Blood Cells % 0 Inr/Protime 10/07/2017 [facility] Inr 0.96 N 0.77-1.[address] [place] [address] [phone] Urine Drug SCR 10/07/2017 [facility] Amphetamine Ur None None Detect ED & Pain [address] [place] [address] [phone] Barbiturates Urine Screen None Detected None Detect Benzodiazepine Urine Screen None Detected None Detect Urine Cannabinoids Screen None Detected None Detect Urine Cocaine Screen None Detected None Detect Urine Opiates Screen None Detected None Detect Urine Phencyclidine Screen None Detected None Detect 7 Comp Metabolic Panel 10/07/2017 [facility] Sodium 136 mmol/L N 133-[address] [place] [address] [phone] Potassium 3.5 mmol/L N 3.5-5.0 Chloride 103 mmol/L N 101-111 Co2 Carbon Dioxide 27 mmol/L N 22-32 Anion Gap 6 mmol/L N 2-11 Glucose 127 mg/dL High 70-100 Blood Urea Nitrogen 17 mg/dL N 6-24 Creatinine 0.73 mg/dL N 0.51-0.95 BUN/Creatinine Ratio 23.3 High 8-20 Calcium 9.5 mg/dL N 8.6-10.3 Total Protein 6.9 g/dL N 6.4-8.9 Albumin 4.3 g/dL N 3.2-5.2 Globulin 2.6 g/dL N 2-4 Albumin/Globulin Ratio 1.7 N 1-3 Total Bilirubin 0.60 mg/dL N 0.2-1.0 Alkaline Phosphatase 53 U/L N 34-104 Alt 36 U/L N 7-52 Ast 22 U/L N 13-39 Egfr Non- 84.7 >60 Egfr 109.0 >60 8 Laboratory test 10/07/2017 [facility] Magnesium 2.1 mg/dL N 1.9-2.[address] [place] [address] [phone] Creatine Kinase(CK) 92 U/L N 10-223 C Reactive Protein 4.38 mg/L N < 5.00 9 Troponin-I (TnI) 0.00 ng/mL <0.04 HCG < 0.60 mIU/mL 10 TSH (Thyroid Stim Horm) 3.11 mcIU/mL N 0.34-5.60 Urine Culture And 10/07/2017 [facility] Urine Culture SEE RESULT [address] [place] [address] [phone] Laboratory test 02/21/2017 [facility] TSH (Thyroid Stim 1.64 N 0.34 [address] Horm) mcIU/mL -5.6 [place] [address] [phone] Lipid Profile 02/21/2017 [facility] Triglycerides 81 mg/dL N 13 (Trig/Chol/HDL) [address] [place] [address] [phone] Cholesterol 84 mg/dL N 14 HDL Cholesterol 37.4 mg/dL N 15 LDL Cholesterol 30 mg/dL N 16 Comp Metabolic Panel 02/21/2017 [facility] Sodium 139 mmol/L N 133-[address] [place] [address] [phone] Potassium 4.0 mmol/L N 3.5-5.0 Chloride 109 mmol/L N 101-111 Co2 Carbon Dioxide 25 mmol/L N 22-32 Anion Gap 5 mmol/L N 2-11 Glucose 102 mg/dL High 70-100 Blood Urea Nitrogen 19 mg/dL N 6-24 Creatinine 0.68 mg/dL N 0.51-0.95 BUN/Creatinine Ratio 27.9 High 8-20 Calcium 8.9 mg/dL N 8.6-10.3 Total Protein 6.0 g/dL Low 6.4-8.9 Albumin 3.7 g/dL N 3.2-5.2 Globulin 2.3 g/dL N 2-4 Albumin/Globulin Ratio 1.6 N 1-3 Total Bilirubin 0.50 mg/dL N 0.2-1.0 Alkaline Phosphatase 45 U/L N 34-104 Alt 34 U/L N 7-52 Ast 28 U/L N 13-39 Egfr Non- 92.3 N >60 Egfr 118.8 N >60 17 Basic Metabolic Panel 08/16/2016 [facility] Sodium 137 mmol/L N 133-[address] [place] [address] [phone] Potassium 3.9 mmol/L N 3.5-5.0 Chloride 106 mmol/L N 101-111 Co2 Carbon Dioxide 26 mmol/L N 22-32 Anion Gap 5 mmol/L N 2-11 Glucose 112 mg/dL High 70-100 Blood Urea Nitrogen 16 mg/dL N 6-24 Creatinine 0.78 mg/dL N 0.51-0.95 BUN/Creatinine Ratio 20.5 High 8-20 Calcium 9.5 mg/dL N 8.6-10.3 Egfr Non- 78.8 N >60 Egfr 101.4 N >60 18 CBC Auto 07/03/2016 [facility] White Blood 19.3 10^3/uL High 3.5-10.[address] [place] [address] [phone] Red Blood Count 4.80 10^6/uL N 4.0-5.4 Hemoglobin 14.7 g/dL N 12.0-16.0 Hematocrit 43 % N 35-47 Mean Corpuscular Volume 89 fL N 80-97 Mean Corpuscular Hemoglobin 31 pg N 27-31 Mean Corpuscular HGB Conc 35 g/dL N 31-36 Red Cell Distribution Width 13 % N 10.5-15 Platelet Count 303 10^3/uL N 150-450 Mean Platelet Volume 8 um3 N 7.4-10.4 Abs Neutrophils 15.1 10^3/uL High 1.5-7.7 Abs Lymphocytes 2.7 10^3/uL N 1.0-4.8 Abs Monocytes 1.3 10^3/uL High 0-0.8 Abs Eosinophils 0.1 10^3/uL N 0-0.6 Abs Basophils 0.1 10^3/uL N 0-0.2 Abs Nucleated RBC 0.01 10^3/uL N Granulocyte % 78.0 % N 38-83 Lymphocyte % 14.0 % Low 25-47 Monocyte % 6.7 % N 1-9 Eosinophil % 0.7 % N 0-6 Basophil % 0.6 % N 0-2 Nucleated Red Blood Cells % 0 N Laboratory test 07/03/2016 [facility] Lactic Acid 0.5 mmol/L N 0.5-2.0 19 finding [address] [place] [address] [phone] Comp Metabolic 07/03/2016 [facility] Sodium 137 mmol/L N 133- 145 Panel [address] [place] [address] [phone] Potassium 3.3 mmol/L Low 3.5-5.0 Chloride 102 mmol/L N 101-111 Co2 Carbon Dioxide 26 mmol/L N 22-32 Anion Gap 9 mmol/L N 2-11 Glucose 100 mg/dL N 70-100 Blood Urea Nitrogen 20 mg/dL N 6-24 Creatinine 0.84 mg/dL N 0.51-0.95 BUN/Creatinine Ratio 23.8 High 8-20 Calcium 9.4 mg/dL N 8.6-10.3 Total Protein 7.3 g/dL N 6.4-8.9 Albumin 4.5 g/dL N 3.2-5.2 Globulin 2.8 g/dL N 2-4 Albumin/Globulin Ratio 1.6 N 1-3 Total Bilirubin 1.20 mg/dL High 0.2-1.0 Alkaline Phosphatase 44 U/L N 34-104 Alt 54 U/L High 7-52 Ast 39 U/L N 13-39 Egfr Non- 72.7 N >60 Egfr 93.5 N >60 20 Laboratory test finding 07/03/2016 [facility] Lipase 25 U/L N 11.0-82.[address] [place] [address] [phone] C Reactive Protein 17.59 mg/L High < 5.00 21 Laboratory test 12/29/2015 [facility] Hemoglobin A1c 5.6 % N Less than [address] (Glyco HGB) 6.0 [place] [address] [phone] Comp Metabolic 12/29/2015 [facility] Sodium 139 N 133-[address] mmol/[place] [address] [phone] Potassium 4.0 mmol/L N 3.5-5.0 Chloride 104 mmol/L N 101-111 Co2 Carbon Dioxide 28 mmol/L N 22-32 Anion Gap 7 mmol/L N 2-11 Glucose 110 mg/dL High 70-100 Blood Urea Nitrogen 24 mg/dL N 6-24 Creatinine 0.70 mg/dL N 0.51-0.95 BUN/Creatinine Ratio 34.3 High 8-20 Calcium 9.5 mg/dL N 8.6-10.3 Total Protein 6.4 g/dL N 6.4-8.9 Albumin 4.0 g/dL N 3.2-5.2 Globulin 2.4 g/dL N 2-4 Albumin/Globulin Ratio 1.7 N 1-3 Total Bilirubin 0.50 mg/dL N 0.2-1.0 Alkaline Phosphatase 49 U/L N 34-104 Alt 26 U/L N 7-52 Ast 19 U/L N 13-39 Egfr Non- 89.7 N >60 Egfr 115.4 N >60 23 Lipid Profile 12/29/2015 [facility] Triglycerides 121 mg/dL N 24 (Trig/Chol/HDL) [address] [place] [address] [phone] Cholesterol 86 mg/dL N 25 HDL Cholesterol 41.6 mg/dL N 26 LDL Cholesterol 20 mg/dL N 27 Laboratory test 06/22/2015 [facility] CRP High 1.69 mg/L N [address] [place] [address] [phone] Erythrocyte Sed Rate 5 mm/Hr N 0-14 Sunshine (Antinuclear Antibodies) Negative N Negative Rheumatoid Factor <15 IU/mL N <15 29 Lyme Western 06/22/2015 [facility] Lyme Disease Negative N Negative Blot [address] [place] [address] [phone] Lyme Disease IgG Bands Present p41, p30, kDa N Lyme Disease IgM Ab WB Negative N Negative Lyme Disease IgM Bands Present p41, kDa N Lyme Disease Interpretation See Comment N 30 Comp Metabolic Panel 06/06/2015 [facility] Sodium 139 mmol/L N 133-[address] [place] [address] [phone] Potassium 3.9 mmol/L N 3.5-5.0 Chloride 108 mmol/L N 101-111 Co2 Carbon Dioxide 27 mmol/L N 22-32 Anion Gap 4 mmol/L N 2-11 Glucose 104 mg/dL High 70-100 Blood Urea Nitrogen 21 mg/dL N 6-24 Creatinine 0.75 mg/dL N 0.51-0.95 BUN/Creatinine Ratio 28.0 High 8-20 Calcium 9.2 mg/dL N 8.6-10.3 Total Protein 6.1 g/dL Low 6.4-8.9 Albumin 4.2 g/dL N 3.2-5.2 Globulin 1.9 g/dL Low 2-4 Albumin/Globulin Ratio 2.2 N 1-3 Total Bilirubin 0.70 mg/dL N 0.2-1.0 Alkaline Phosphatase 37 U/L N 34-104 Alt 21 U/L N 7-52 Ast 16 U/L N 13-39 Egfr Non- 83.2 N >60 Egfr 107.0 N >60 31 Laboratory test 06/06/2015 [facility] Hemoglobin A1c 5.7 % N Less than [address] (Glyco HGB) 6.0 [place] [address] [phone] Laboratory test 12/03/2014 [facility] Cytology RUN [address] DATE: [place] [address] 12/08/ [phone] <SEE NOTE> HPV Rna W/ Reflex Genotype Negative N Negative 34 Comp Metabolic Panel 12/02/2014 [facility] Sodium 138 mmol/L N 133-[address] [place] [address] [phone] Potassium 4.0 mmol/L N 3.5-5.0 Chloride 103 mmol/L N 101-111 Co2 Carbon Dioxide 30 mmol/L N 22-32 Anion Gap 5 mmol/L N 2-11 Glucose 113 mg/dL High 70-100 Blood Urea Nitrogen 19 mg/dL N 6-24 Creatinine 0.82 mg/dL N 0.51-0.95 BUN/Creatinine Ratio 23.2 High 8-20 Calcium 9.3 mg/dL N 8.6-10.3 Total Protein 6.4 g/dL N 6.4-8.9 Albumin 4.2 g/dL N 3.2-5.2 Globulin 2.2 g/dL N 2-4 Albumin/Globulin Ratio 1.9 N 1-3 Total Bilirubin 1.00 mg/dL N 0.2-1.0 Alkaline Phosphatase 37 U/L N 34-104 Alt 22 U/L N 7-52 Ast 21 U/L N 13-39 Egfr Non- 75.1 N >60 Egfr 96.5 N >60 36 Lipid Profile 12/02/2014 [facility] Triglycerides 38 mg/dL N 37 (Trig/Chol/HDL) [address] [place] [address] [phone] Cholesterol 77 mg/dL N 38 HDL Cholesterol 38.7 mg/dL N 39 LDL Cholesterol 31 mg/dL N 40 Laboratory test 12/02/2014 [facility] TSH (Thyroid 1.86 N 0.34 -5.60 [address] Stimulating IU/[place] [address] Horm) [phone] Laboratory test 12/08/2013 [facility] TSH (Thyroid 1.34 N 0.34 -5.[address] Stimulating IU/[place] [address] Horm) [phone] Free T4 0.82 ng/mL N 0.61-1.12 Laboratory test 08/13/2013 [facility] Hemoglobin A1c 5.5 % Less than [address] [place] [address] [phone] Lipid Profile 08/13/2013 [facility] Triglycerides 34 mg/dL Low 40-200 (Trig/Chol/HDL) [address] [place] [address] [phone] Cholesterol 91 mg/dL Low Less than 200 HDL Cholesterol 51 mg/dL 40-60 43 Cholesterol/HDL Ratio 1.8 Average 1-4.44 LDL Cholesterol 33.2 Less Than 100 44 Comp Metabolic Panel 08/13/2013 [facility] Sodium 136 mmol/L 133-145 [address] [place] [address] [phone] Potassium 4.2 mmol/L 3.5-5.0 Chloride 104 mmol/L 101-111 Co2 Carbon Dioxide 27.0 mmol/L 22-32 Anion Gap 5.0 mmol/L 2-11 Glucose 94 mg/dL 70-100 Blood Urea Nitrogen 14 mg/dL 6-24 Creatinine 0.70 mg/dL 0.50-1.40 BUN/Creatinine Ratio 20.0 8-20 Calcium 9.3 mg/dL 8.1-9.9 Total Protein 6.4 g/dL 6.2-8.1 Albumin 4.2 g/dL 3.6-5.4 Globulin 2.2 g/dL 2-4 Albumin/Globulin Ratio 1.9 1-3 Total Bilirubin 0.9 mg/dL 0.4-1.5 Alkaline Phosphatase 47 U/L 30-110 Alt 40 U/L 14-54 Ast 28 U/L 12-42 Egfr Non- 90.5 >60 Egfr 116.4 >60 45 Laboratory test 08/08/2012 [facility] Blood Urea 21 mg/dL 6- 24 finding [address] [facility] [place] [address] [phone] Creatinine 08/08/2012 [facility] Creatinine 0.80 mg/dL 0.50- 1.40 [address] [place] [address] [phone] Egfr Non- 77.9 >60 Egfr 100.2 >60 46 Comp Metabolic Panel 07/09/2012 [facility] Sodium 138 mmol/L 133-145 [address] [place] [address] [phone] Potassium 3.8 mmol/L 3.5-5.0 Chloride 105 mmol/L 101-111 Co2 Carbon Dioxide 27.0 mmol/L 22-32 Anion Gap 6.0 mmol/L 2-11 Glucose 110 mg/dL High 70-100 Blood Urea Nitrogen 16 mg/dL 6-24 Creatinine 0.80 mg/dL 0.50-1.40 BUN/Creatinine Ratio 20.0 8-20 Calcium 9.2 mg/dL 8.1-9.9 Total Protein 5.8 GM/DL Low 6.2-8.1 Albumin 3.8 GM/DL 3.6-5.4 Globulin 2.0 GM/DL 2-4 Albumin/Globulin Ratio 1.9 1-3 Total Bilirubin 0.8 mg/dL 0.1-1.0 47 Alkaline Phosphatase 44 U/L 30-110 Alt 45 U/L 14-54 Ast 30 U/L 12-42 Egfr Non- 78.3 >60 Egfr 100.7 >60 48 Lipid Profile 07/09/2012 [facility] Triglycerides 24 mg/dL Low 40-200 (Trig/Chol/HDL) [address] [place] [address] [phone] Cholesterol 83 mg/dL Low Less than 200 HDL Cholesterol 36 mg/dL Low 40-60 49 Cholesterol/HDL Ratio 2.3 AVERAGE 1-4.44 LDL Cholesterol 42.2 mg/dL Less Than 100 50 Laboratory test 07/09/2012 [facility] TSH (Thyroid 1.99 0.34- 5.60 [address] Stimulating MIU/[place] [address] Horm) [phone] Hemoglobin A1c 5.8 % Less than 6.0 52 Ua Routine 06/26/2012 [facility] Ua Specific Dodson 1.020 Ua PH 5 Ua Color dark yellow Ua Appera clear Ua WBC neg Ua Protein neg Ua Glucose neg Ua Ketones neg Ua Bilirubin small Ua Urobilinogen neg Ua Nitrite neg Ua Occult Blood non hemo trace Laboratory test 01/07/2012 [facility] Hemoglobin A1c 5.7 % Less Than [address] [place] [address] [phone] Comp Metabolic 06/29/2011 [facility] Sodium 137 135-[address] mmol/[place] [address] [phone] Potassium 3.9 mmol/L 3.5-5.0 Chloride 104 mmol/L 101-111 Co2 (Carbon Dioxide) 28.0 mmol/L 22-32 Anion Gap 5.0 mmol/L 2-11 54 Glucose 99 mg/dL 70-100 BUN 20 mg/dL 6-24 Creatinine 0.8 mg/dL 0.50-1.40 One Over Creatinine 1.25 BUN/Creatinine Ratio 25.0 High 8-20 Calcium 9.7 mg/dL 8.1-9.9 Total Protein 5.8 GM/DL Low 6.2-8.1 Albumin 4.1 GM/DL 3.6-5.4 Globulin 1.7 GM/DL Low 2-4 Albumin/Globulin Ratio 2.4 1-3 Bilirubin Total 1.3 mg/dL 0.4-1.5 55 Alkaline Phosphatase 49 U/L 30-110 Alt (SGPT) 39 U/L 14-54 Ast (Sgot) 28 U/L 12-42 eGFR Non- 78.7 > 60 eGFR 101.2 > 60 56 Lipid Profile 06/29/2011 [facility] Triglyceride 60 mg/dL 40- 200 (Trig/Chol/HDL) [address] [place] [address] [phone] Cholesterol 88 mg/dL Low Less Than 200 57 High Density Lipoprotein 33 mg/dL Low 40-60 58 Cholesterol/HDL Ratio 2.67 AVERAGE 1-4.44 Low Density Lipoprotein 43 mg/dL Less Than 100 59 Laboratory test 06/29/2011 [facility] TSH 1.84 MIU/ML 0.34- 5.60 finding [address] [place] [address] [phone] Hemoglobin A1c 5.8 % Less Than 6.0 60 Laboratory 06/25/2011 [facility] Cytology [address] <SEE NOTE> [place] [address] [phone] Body Fluid C&S 05/14/2011 [facility] Body Fluid NO ORGANISMS SEE 62, 63 Smear <SEE NOTE> [place] [address] [phone] Acid Fast 05/14/2011 [facility] Acid Fast Due to limited s 64 Smear Stain - <SEE NOTE> [place] [address] Direct [phone] Acid Fast Stain - Direct NO ACID FAST ECTOR <SEE NOTE> 65 Laboratory test 05/14/2011 [facility] Fungal Cult Other NG2-4 [address] [place] [address] [phone] Cell Count Misc 05/14/2011 [facility] Other Fluid CLEAR Fluid [address] [place] [address] [phone] Other Fluid Volume 4.5 ML Other Fluid WBC 4 CUMM Other Fluid RBC 1844 CUMM Other Fluid Polys 5 Other Fluid Upton 6 Other Fluid Nonhemo 7 Total Cells Counted 18 Other Fluid Comments (SEE NOTE) 67 Acid Fast 05/14/2011 [facility] M [address] <SEE NOTE> [place] [address] [phone] Acid Fast 05/14/2011 [facility] Acid Fast Culture, Mycobac [address] Culture <SEE NOTE> [place] [address] [phone] Acid Fast 05/14/2011 [facility] Acid Fast Culture, Mycobac [address] Culture <SEE NOTE> [place] [address] [phone] Laboratory 05/14/2011 [facility] Body Fluid NG4 71 test finding [address] Cult Sens [place], [place] [address] [phone] Acid Fast 05/14/2011 [facility] Acid Fast Culture, Mycobac [address] Culture <SEE NOTE> [place] [address] [phone] Body Fluid C&S 05/14/2011 [facility] Body Fluid NO ORGANISMS SEE [address] Smear <SEE NOTE> [place] [address] [phone] Fungal Cult 05/14/2011 [facility] Fungal Cult NG3-4 74 Other Sources [address] [place] [address] [phone] Body Fluid 05/14/2011 [facility] Body Fluid NG4 75 Cult Sens [address] Cult Sens [place], [place] [address] [phone] Laboratory 05/11/2011 [facility] C. Difficile TNP 76, test finding [address] Toxin A B 77 [place], [place] [address] [phone] Laboratory 04/28/2011 [facility] Stool Culture NF 78, test finding [address] [place] [address] [phone] Stool Specimen Description BROWN 80 Shiga Toxin 1 And 2 (Ehec) TNP 81 CBC With Manual 04/09/2011 [facility] White Blood 8.8 CUMM 4.8-10.[address] [place] [address] [phone] Red Cell Count 4.63 CUMM 4.2-5.4 Hemoglobin 14.8 g/dL 12.0-16.0 Hematocrit 43 % 35-47 Mean Corpuscular Volume 92 um3 79-97 Mean Corpuscular Hemoglob 32 pg High 27-31 Mean Corpuscular HGB Cone 35 g/dL 32-36 Redcell Distribution WDTH 12 % 10.5-15 Platelet Count 241 CUMM 150-450 Mean Platelet Volume 8.7 um3 7.4-10.4 Polysegmented Neutrophil 56 % 38-83 Lymphocyte 39 % 25-47 Monocyte 3 % 0-13 Eosinophil 2 % 0-6 Absolute Neutrophil Count 4.9 RBC Morphology NORMAL Comp Metabolic Panel 04/09/2011 [facility] Sodium 140 mmol/L 135-[address] [place] [address] [phone] Potassium 3.8 mmol/L 3.5-5.0 Chloride 106 mmol/L 101-111 Co2 (Carbon Dioxide) 29.0 mmol/L 22-32 Anion Gap 5.0 mmol/L 2-11 82 Glucose 95 mg/dL 70-100 BUN 10 mg/dL 6-24 Creatinine 0.8 mg/dL 0.50-1.40 One Over Creatinine 1.25 BUN/Creatinine Ratio 12.5 8-20 Calcium 8.9 mg/dL 8.1-9.9 Total Protein 7.0 GM/DL 6.2-8.1 Albumin 4.1 GM/DL 3.6-5.4 Globulin 2.9 GM/DL 2-4 Albumin/Globulin Ratio 1.4 1-3 Bilirubin Total 1.3 mg/dL 0.4-1.5 83 Alkaline Phosphatase 47 U/L 30-110 Alt (SGPT) 49 U/L 14-54 Ast (Sgot) 37 U/L 12-42 eGFR Non- 78.7 > 60 eGFR 101.2 > 60 84 1 Desirable: <150 Borderline High: 150-199 High: 200-499 Very High: >500 2 Desirable: <200 Borderline High: 200-239 High: >239 3 Low: <40 Desirable: 40-60 High: >60 4 Desirable: <100 Near Optimal: 100-129 Borderline High: 130-159 High: 160-189 Very High: >189 5 Therapeutic target for the treatment of diabetes mellitus patients is <7% HBA1C, and in selective patients <6.0%. Please refer to [place] [employer] diabetic care guidelines for further information. 6 Because ethnic data is not always readily available, this report includes an eGFR for both -Americans and non- Americans. The National Kidney Disease Education Program (NKDEP) does not endorse the use of the MDRD equation for patients that are not between the ages of 18 and 70, are , have extremes of body size, muscle mass, or nutritional status, or are non- or non-. According to the National Kidney Foundation, irrespective of diagnosis, the stage of the disease is based on the level of kidney function: Stage Description GFR(mL/min/1.73 m(2)) 1 Kidney damage with normal or decreased GFR 90 2 Kidney damage with mild decrease in GFR 60-89 3 Moderate decrease in GFR 30-59 4 Severe decrease in GFR 15-29 5 Kidney failure <15 (or dialysis) 7 The urine specimen was tested at the listed cutoffs: Drug class test level (ng/mL) Amphetamines 500 Barbiturates 200 Benzodiazepine metabolites 200 Cocaine metabolites 150 Cannabinoids 50 Opiates 300 Pcp 25 Specimen was received without chain of custody. Results should be used for medical purposes only. 8 Because ethnic data is not always readily available, this report includes an eGFR for both -Americans and non- Americans. The National Kidney Disease Education Program (NKDEP) does not endorse the use of the MDRD equation for patients that are not between the ages of 18 and 70, are , have extremes of body size, muscle mass, or nutritional status, or are non- or non-. According to the National Kidney Foundation, irrespective of diagnosis, the stage of the disease is based on the level of kidney function: Stage Description GFR(mL/min/1.73 m(2)) 1 Kidney damage with normal or decreased GFR 90 2 Kidney damage with mild decrease in GFR 60-89 3 Moderate decrease in GFR 30-59 4 Severe decrease in GFR 15-29 5 Kidney failure <15 (or dialysis) 9 Acute inflammation: >10.00 10 <5.0 Negative 5.0 - 25.0 Indeterminate (Repeat testing recommended after 72 hours) >25.0 Positive Perimenopausal women can display HCG levels of up to 20 mIU/mL 11 SEE RESULT BELOW Name: HOMA RAMIREZ : [address]: David Panda MD Acct: [id number] Unit: [id number] AGE: 47 Location: [place] [address] Re10/07/17 SEX: F Status: ADM Senait SPEC: [id number] REGINO: 10/07/[address] [facility] [address]: Anh Frost MD REQ: [id number] RECD: 10/07/17 STATUS: EVELYNE MONREAL DR: Andree Torres [facility] _ SOURCE: URINE SPDESC: ORDERED: Urine Culture Procedure Result Reported Site Urine Culture Final 10/08/17- 0816 ML No growth of clinically significant organisms * ML - MAIN LAB ([facility]) . END OF REPORT * ML=Testing performed at Main Lab DEPARTMENT OF PATHOLOGY, [address] [place] [address] Lenin Marquez M.D. Director [facility] # [id number] 12 FASTING 10 HOUR 13 Desirable <150 Borderline high 150-199 High 200-499 Very High >500 14 Desirable <200 Borderline high 200-239 High >239 15 Low <40 Desirable: 40-60 High: >60 16 Desirable: <100 mg/dL Near Optimal: 100-129 mg/dL Borderline High: 130-159 mg/dL High: 160-189 mg/dL Very High: >189 mg/dL 17 Because ethnic data is not always readily available, this report includes an eGFR for both -Americans and non- Americans. The National Kidney Disease Education Program (NKDEP) does not endorse the use of the MDRD equation for patients that are not between the ages of 18 and 70, are , have extremes of body size, muscle mass, or nutritional status, or are non- or non-. According to the National Kidney Foundation, irrespective of diagnosis, the stage of the disease is based on the level of kidney function: Stage Description GFR(mL/min/1.73 m(2)) 1 Kidney damage with normal or decreased GFR 90 2 Kidney damage with mild decrease in GFR 60-89 3 Moderate decrease in GFR 30-59 4 Severe decrease in GFR 15-29 5 Kidney failure <15 (or dialysis) 18 Because ethnic data is not always readily available, this report includes an eGFR for both -Americans and non- Americans. The National Kidney Disease Education Program (NKDEP) does not endorse the use of the MDRD equation for patients that are not between the ages of 18 and 70, are , have extremes of body size, muscle mass, or nutritional status, or are non- or non-. According to the National Kidney Foundation, irrespective of diagnosis, the stage of the disease is based on the level of kidney function: Stage Description GFR(mL/min/1.73 m(2)) 1 Kidney damage with normal or decreased GFR 90 2 Kidney damage with mild decrease in GFR 60-89 3 Moderate decrease in GFR 30-59 4 Severe decrease in GFR 15-29 5 Kidney failure <15 (or dialysis) 19 [facility] Severe Sepsis and Septic Shock Management Bundle Measure requires all lactic acids initially measuring >2.0 mmol/L be repeated. 20 Because ethnic data is not always readily available, this report includes an eGFR for both -Americans and non- Americans. The National Kidney Disease Education Program (NKDEP) does not endorse the use of the MDRD equation for patients that are not between the ages of 18 and 70, are , have extremes of body size, muscle mass, or nutritional status, or are non- or non-. According to the National Kidney Foundation, irrespective of diagnosis, the stage of the disease is based on the level of kidney function: Stage Description GFR(mL/min/1.73 m(2)) 1 Kidney damage with normal or decreased GFR 90 2 Kidney damage with mild decrease in GFR 60-89 3 Moderate decrease in GFR 30-59 4 Severe decrease in GFR 15-29 5 Kidney failure <15 (or dialysis) 21 Acute inflammation: >10.00 22 Therapeutic target for the treatment of diabetes Mellitus patients is <7% HBA1C, and in selective patients <6.0%.Please refer to [place] [employer] Diabetic care guidelines for further information. 23 Because ethnic data is not always readily available, this report includes an eGFR for both -Americans and non- Americans. The National Kidney Disease Education Program (NKDEP) does not endorse the use of the MDRD equation for patients that are not between the ages of 18 and 70, are , have extremes of body size, muscle mass, or nutritional status, or are non- or non-. According to the National Kidney Foundation, irrespective of diagnosis, the stage of the disease is based on the level of kidney function: Stage Description GFR(mL/min/1.73 m(2)) 1 Kidney damage with normal or decreased GFR 90 2 Kidney damage with mild decrease in GFR 60-89 3 Moderate decrease in GFR 30-59 4 Severe decrease in GFR 15-29 5 Kidney failure <15 (or dialysis) 24 Desirable <150 Borderline high 150-199 High 200-499 Very High >500 25 Desirable <200 Borderline high 200-239 High >239 26 Low <40 Desirable: 40-60 High: >60 27 Desirable: <100 mg/dL Near Optimal: 100-129 mg/dL Borderline High: 130-159 mg/dL High: 160-189 mg/dL Very High: >189 mg/dL 28 Low risk: <1.00 Average risk: 1.00-3.00 High risk: >3.00 29 Test Performed by: [place] [address] Lock Installer: Juvenal Kumar II, M.D., Ph.D. 30 Specific serologic response to B. burgdorferi infection is not detected, but cannot rule out early infection during which low or undetectable antibody levels to B. burgdorferi may be present. If clinically indicated, a new serum specimen should be submitted in 7-14 days. ADDITIONAL INFORMATION CDC criteria require >=5 bands for IgG or >=2 bands for IgM for the Immunoblot to be considered positive. Bands (e.g.,p41) may be detected in patients without Lyme disease, and patterns not meeting the CDC criteria should be interpreted with caution. Immunoblot should be ordered only on specimens that are positive or equivocal by a FDA-licensed Lyme disease antibody screening test (e.g., EIA). Test Performed by: [facility] - [address] [address] Lock Installer: Juvenal Kumar II, M.D., Ph.D. 31 Because ethnic data is not always readily available, this report includes an eGFR for both -Americans and non- Americans. The National Kidney Disease Education Program (NKDEP) does not endorse the use of the MDRD equation for patients that are not between the ages of 18 and 70, are , have extremes of body size, muscle mass, or nutritional status, or are non- or non-. According to the National Kidney Foundation, irrespective of diagnosis, the stage of the disease is based on the level of kidney function: Stage Description GFR(mL/min/1.73 m(2)) 1 Kidney damage with normal or decreased GFR 90 2 Kidney damage with mild decrease in GFR 60-89 3 Moderate decrease in GFR 30-59 4 Severe decrease in GFR 15-29 5 Kidney failure <15 (or dialysis) 32 Therapeutic target for the treatment of diabetes Mellitus patients is <7% HBA1C, and in selective patients <6.0%.Please refer to [place] [employer] Diabetic care guidelines for further information. 33 RUN DATE: 12/08/14 [facility] LAB LIVE PAGE 1 RUN TIME: [address] [place] [id number] Specimen Inquiry Name: HOMA RAMIREZ : [address]: Andree Torres NP Acct: [id number] Unit: [id number] AGE: 44 Location: [facility] Re12/03/14 SEX: F Status: REG REF SPEC: [id number] REGINO: 12/03/14-[address]: Andree Torres NP REQ: [id number] RECD: 12/03/14 STATUS: SOUT _ ORDERED: IMAGE ANALYSIS, HPV/Thin Prep, HPV 16/18 GENE FINAL DIAGNOSIS Negative for Intraepithelial lesion or Malignancy A. Ectocervical/Endocervical Specimen Adequacy: Satisfactory of evaluation Transformation zone component identified Patient Information: HPV: High risk HPV RNA testing regardless of pap results. HPV 16/18 Genotype for HPV pos Actual Specimen Date: 12/03/14 Last Menstrual Date: 11/17/14 ?: N Post Menopausal?: N Hysterectomy?: N Previous Abnormal Pap Smears?:N Date Time Test Result Flag (u) Normal Range 12/03/14 1647 HPV RNA RFLX GE Negative Negative The high-risk HPV types detected by the assay include: 16, 18, 31, 33, 35, 39, 45, 51, 52, 56, 58, 59, 66, and 68. Signed (signature on file) Juan AntonioILDA Samaniego (ASCP) 12/08 0839 This Pap test was evaluated with the assistance of the [employer] Test Imaging System. Due to cytologic findings at the shorer microscope, comprehensive manual rescreening by a Mobile Lounge Driver Or Operator may be required. The Pap Smear is a screening test designed to aid in the detection of premalignant and malignant conditions of the uterine cervix. It is not a diagnostic procedure and should not be used as the sole means of detecting cervical cancer. Both false- positive and false- negative reports do occur. Depending on your risk status, a Pap smear should be obtained and evaluated every 1-3 years. END OF REPORT * ML=Testing performed at Main Lab DEPARTMENT OF PATHOLOGY, [address] [place] [address] Lenin Marquez M.D. Director [facility] # [id number] 34 The high-risk HPV types detected by the assay include: 16, 18, 31, 33, 35, 39, 45, 51, 52, 56, 58, 59, 66, and 68. 35 FASTING 10 HOUR 36 Because ethnic data is not always readily available, this report includes an eGFR for both -Americans and non- Americans. The National Kidney Disease Education Program (NKDEP) does not endorse the use of the MDRD equation for patients that are not between the ages of 18 and 70, are , have extremes of body size, muscle mass, or nutritional status, or are non- or non-. According to the National Kidney Foundation, irrespective of diagnosis, the stage of the disease is based on the level of kidney function: Stage Description GFR(mL/min/1.73 m(2)) 1 Kidney damage with normal or decreased GFR 90 2 Kidney damage with mild decrease in GFR 60-89 3 Moderate decrease in GFR 30-59 4 Severe decrease in GFR 15-29 5 Kidney failure <15 (or dialysis) 37 Desirable <150 Borderline high 150-199 High 200-499 Very High >500 38 Desirable <200 Borderline high 200-239 High >239 39 Low <40 Desirable: 40-60 High: >60 40 Desirable: <100 mg/dL Near Optimal: 100-129 mg/dL Borderline High: 130-159 mg/dL High: 160-189 mg/dL Very High: >189 mg/dL 41 FASTING 10 HOUR 42 Therapeutic target for the treatment of diabetes Mellitus patients is <7% HBA1C, and in selective patients <6.0%.Please refer to [place] [employer] Diabetic care guidelines for further information. 43 HDL Interpretation: Undesirable: High Risk: Less than 40 mg/dL Desirable: Low Risk: Greater than 60 mg/dL 44 LDL Interpretation: Low Risk Optimal Level: LDL Less than 100 mg/dL Near or Above Optimal: LDL 100-129 mg/dL Borderline High Risk: LDL 130-159 mg/dL High Risk: LDL 160-189 mg/dL Very High Risk: LDL Greater than 189 mg/dL 45 Because ethnic data is not always readily available, this report includes an eGFR for both -Americans and non- Americans. The National Kidney Disease Education Program (NKDEP) does not endorse the use of the MDRD equation for patients that are not between the ages of 18 and 70, are , have extremes of body size, muscle mass, or nutritional status, or are non- or non-. According to the National Kidney Foundation, irrespective of diagnosis, the stage of the disease is based on the level of kidney function: Stage Description GFR(mL/min/1.73 m(2)) 1 Kidney damage with normal or decreased GFR 90 2 Kidney damage with mild decrease in GFR 60-89 3 Moderate decrease in GFR 30-59 4 Severe decrease in GFR 15-29 5 Kidney failure <15 (or dialysis) 46 Because ethnic data is not always readily available, this report includes an eGFR for both -Americans and non- Americans. The National Kidney Disease Education Program (NKDEP) does not endorse the use of the MDRD equation for patients that are not between the ages of 18 and 70, are , have extremes of body size, muscle mass, or nutritional status, or are non- or non-. According to the National Kidney Foundation, irrespective of diagnosis, the stage of the disease is based on the level of kidney function: Stage Description GFR(mL/min/1.73 m(2)) 1 Kidney damage with normal or decreased GFR 90 2 Kidney damage with mild decrease in GFR 60-89 3 Moderate decrease in GFR 30-59 4 Severe decrease in GFR 15-29 5 Kidney failure <15 (or dialysis) 47 A metabolite of Naproxen, O-desmethylnaproxen, has been shown to interfere with the Jendrassik-Plevna method for measuring total bilirubin. Samples from patients who have taken Naproxen have shown spurious elevation in total bilirubin levels. 48 Because ethnic data is not always readily available, this report includes an eGFR for both -Americans and non- Americans. The National Kidney Disease Education Program (NKDEP) does not endorse the use of the MDRD equation for patients that are not between the ages of 18 and 70, are , have extremes of body size, muscle mass, or nutritional status, or are non- or non-. According to the National Kidney Foundation, irrespective of diagnosis, the stage of the disease is based on the level of kidney function: Stage Description GFR(mL/min/1.73 m(2)) 1 Kidney damage with normal or decreased GFR 90 2 Kidney damage with mild decrease in GFR 60-89 3 Moderate decrease in GFR 30-59 4 Severe decrease in GFR 15-29 5 Kidney failure <15 (or dialysis) 49 HDL Interpretation: Undesirable: High Risk: Less than 40 MG/DL Desirable: Low Risk: Greater than 60 MG/DL 50 LDL Interpretation: Low Risk Optimal Level: LDL Less than 100 MG/DL Near or Above Optimal: LDL 100-129 MG/DL Borderline High Risk: LDL 130-159 MG/DL High Risk: LDL 160-189 MG/DL Very High Risk: LDL Greater than 189 MG/DL 51 PT IS FASTING 52 Therapeutic target for the treatment of diabetes Mellitus patients is <7% HBA1C, and in selective patients <6.0%.Please refer to [place] [employer] Diabetic care guidelines for further information. 53 THERAPEUTIC TARGET FOR THE TREATMENT OF DIABETES MELLITUS PATIENTS IS <7% HBA1C, AND IN SELECTIVE PATIENTS <6.0%. PLEASE REFER TO [place] DIAB[employer]ES ASSOCIATION DIABETIC CARE GUIDELINES FOR FURTHER INFORMATION. 54 Anion gap measurement may be of limited value in the presence of any alkalosis, especially in a combined acid base disorder. . 55 A metabolite of Naproxen, O-desmethylnaproxen, has been shown to interfere with the Jendrassik-Plevna method for measuring total bilirubin. Samples from patients who have taken Naproxen have shown spurious elevation in total bilirubin levels. 56 Because ethnic data is not always readily available, this report includes an eGFR for both -Americans and non- Americans. The National Kidney Disease Education Program (NKDEP) does not endorse the use of the MDRD equation for patients that are not between the ages of 18 and 70, are , have extremes of body size, muscle mass, or nutritional status, or are non- or non-. According to the National Kidney Foundation, irrespective of diagnosis, the stage of the disease is based on the level of kidney function: Stage Description GFR(mL/min/1.73 m(2)) 1 Kidney damage with normal or decreased GFR 90 2 Kidney damage with mild decrease in GFR 60-89 3 Moderate decrease in GFR 30-59 4 Severe decrease in GFR 15-29 5 Kidney failure <15 (or dialysis) 57 CHOLESTEROL INTERPRETATION: Desirable: Less than 200 MG/DL Borderline-High Risk: 200-239 MG/DL High-Risk: 240 MG/DL and over 58 HDL INTERPRETATION: Undesirable: High Risk: Less than 40 MG/DL Desirable: Low Risk: Greater than 60 MG/DL 59 LDL INTERPRETATION: Low Risk Optimal Level: LDL Less than 100 MG/DL Near or Above Optimal: LDL 100-129 MG/DL Borderline High Risk: LDL 130-159 MG/DL High Risk: LDL 160-189 MG/DL Very High Risk: LDL Greater than 189 MG/DL 60 THERAPEUTIC TARGET FOR THE TREATMENT OF DIABETES MELLITUS PATIENTS IS <7% HBA1C, AND IN SELECTIVE PATIENTS <6.0%. PLEASE REFER TO [place] DI[employer]OCIATION DIABETIC CARE GUIDELINES FOR FURTHER INFORMATION. 61 ---- RUN DATE: 06/26/11 [facility] NMI LIVE PAGE 1 RUN TIME: 1528 Specimen Inquiry RUN USER: INTERFACE -- Name: HOMA RAMIREZ Kristin Curry#: [id number] Status: REG REF Re06/25/11 Age/Sex: 40/F Unit#: [id number] Location: [facility] : 68 -- Specimen: [id number] EDWARD Spec Date: 06/25/[address]: Andree ohara [facility] Spec Type: CYTOLOGY Received: 06/26/11-1134 Copies to: SOURCE ECTOCERVICAL/ENDOCERVICAL Thin Prep with Reflex HPV Test PATIENT INFORMATION ACTUAL COLLECTION DATE: 06/25/11 ? No POST MENOPAUSAL? No HYSTERECTOMY? No PREVIOUS ABNORMAL PAP SMEARS No LAST MENSTRUAL PERIOD: 06/19/11 ADEQUACY OF SPECIMEN Satisfactory for evaluation * Transformation zone component identified * DIAGNOSIS NEGATIVE FOR INTRAEPITHELIAL LESION OR MALIGNANCY * This Pap test was evaluated with the assistance of the ThinPrep Pap Test Imaging System. The Pap Smear is a screening test designed to aid in the detection of premalign ant and malignant conditions of the uterine cervix. It is not a diagnostic procedure a nd should not be used as the sole means of detecting cervical cancer. Both false- positiv e and false-negative reports do occur. Depending on your risk status, a Pap smear karmen uld be obtained and evaluated every one to three years. Initial evaluation performed by Mikey SHAHID([facility]) 06/26/11 Final Interpretation electronically signed by: Mikey SHAHID([facility]) 06/26/11 1528 -- -- DEPARTMENT OF PATHOLOGY, [address] [place] [address] [facility] Permit #[id number] Lenin Marquez M.D. Director Juju Castro M.D. Simplex Operator Dir tony -- 62 CT GUIDED ABDOMINAL CYST ASPIRATION 63 NO ORGANISMS SEEN BY CYTOSPIN SMEAR NONE 64 Due to limited sensitivity of the smear, results should be used as an adjunct in evaluating the patient's status and cultural examination is highly recommended for diagnosis. 65 NO ACID FAST BACILLI OBSERVED 66 PRELIMINARY: NO GROWTH AFTER 2 WEEKS 67 REVIEWED BY LENIN MARQUEZ MD Slide and differential reviewed. No bacteria, blasts or other malignant cells seen. NON-HEME ARE MESOTHELIAL CELLS 68 RUN DATE: 07/14/11 [facility] NMI LIVE PAGE 1 RUN TIME: 1134 Specimen Inquiry RUN USER: INTERFACE Name: HOMA RAMIREZ Accflorentin#: [id number] Status: REG REF Re05/14/11 Age/Sex: 40/F Unit#: [id number] Location: : 66 SPEC #: [id number] REGINO: 05/14/11113 STATUS: EVELYNE REQ #: [id number] RECD: 05/14/11-[address]: Anika SHEARERCyril SOURCE: MISC FL ENTR: 05/14/11-[address]: Yola SHEARER,Dee SPDESC: ABDOMEN ORDERED: ACID FAST CULT COMMENTS: CT GUIDED ABDOMINAL CYST ASPIRATION Procedure Result Verified Site > ACID FAST CULTURE Final 07/14/11- 1133 ML Culture, Mycobacterium No growth after 60 days Test performed by: [facility] [address] [place] [address] - [facility] Permit #[id number] [address] [place] [address] DEPARTMENT OF PATHOLOGY, [address] [place] [address] [facility] Permit #[id number] Lenin Marquez M.D. Director Juju Castro M.D. Cyber Security Architect 69 Culture, Mycobacterium No growth after 42 days Test performed by: [place] [id number] 70 Culture, Mycobacterium No growth after 28 days Test performed by: [place] [id number] 71 FINAL: NO GROWTH DAY 4 72 Culture, Mycobacterium No growth after 14 days Test performed by: [place] [id number] 73 NO ORGANISMS SEEN BY CYTOSPIN SMEAR NONE 74 FINAL: NO GROWTH AFTER 3 WEEKS 75 FINAL: NO GROWTH DAY 4 76 C. DIFFICILE TOXIN TESTING IS NOT PERFORMED ON FORMED STOOL SPECIMENS. TEST OF CURE ON POSITIVE PATIENTS IS NOT RECOMMENDED. 77 Test not performed 78 UNABLE TO PERFORM SHIGA TOXIN TESTING. SPECIMEN COLLECTION REQUIREMENTS WERE NOT MET. STOOL FOR SHIGA TOXIN TESTING MUST BE RECEIVED BY THE LABORATORY WITHIN 2 HOURS OF COLLECTION OR PLACED IN [facility] TRANSPORT MEDIUM. *PLEASE INTERPRET STOOL CULTURE RESULT WITH CAUTION* STOOL SPECIMEN WAS NOT PLACED INTO APPROPRIATE TRANSPORT MEDIUM WITHIN RECOMMENDED TIME-FRAME. TESTING MAY BE LESS SENSITIVE. 79 NEGATIVE FOR THE ENTERIC PATHOGENS - SALMONELLA, SHIGELLA, AEROMONAS, PLESIOMONAS AND YERSINIA. VIBRIO AND E. COLI 0157 NOT ROUTINELY TESTED FOR IN A STOOL CULTURE. PLEASE SUBMIT SAMPLE WITH SPECIFIC REQUEST FOR DESIRED ORGANISM(S). 80 LIQUID NONFORMED 81 Test not performed 82 Anion gap measurement may be of limited value in the presence of any alkalosis, especially in a combined acid base disorder. . 83 A metabolite of Naproxen, O-desmethylnaproxen, has been shown to interfere with the Jendrassik-Alek method for measuring total bilirubin. Samples from patients who have taken Naproxen have shown spurious elevation in total bilirubin levels. 84 Because ethnic data is not always readily available, this report includes an eGFR for both -Americans and non- Americans. The National Kidney Disease Education Program (NKDEP) does not endorse the use of the MDRD equation for patients that are not between the ages of 18 and 70, are , have extremes of body size, muscle mass, or nutritional status, or are non- or non-. According to the National Kidney Foundation, irrespective of diagnosis, the stage of the disease is based on the level of kidney function: Stage Description GFR(mL/min/1.73 m(2)) 1 Kidney damage with normal or decreased GFR 90 2 Kidney damage with mild decrease in GFR 60-89 3 Moderate decrease in GFR 30-59 4 Severe decrease in GFR 15-29 5 Kidney failure <15 (or dialysis) Procedures Date Code Description Status 03/14/2018 37046500 Mammogram Completed 11/20/2017 03603 Sleep Study Unattended,HRT Rate,Oxygen Sat,Resp Completed Effort/Airflow 10/16/2017 76260 EKG Tracing & Interpretation Completed 10/08/2017 48672 Treadmill Interp/Report Only Completed 10/08/2017 61558 Stress Test Supervsn W/Out I/R Completed 10/08/2017 99000 EKG, Interpretation Only Completed 10/07/2017 28613 EKG, Interpretation Only Completed 07/31/2017 [id number] Diabetic Retinal Eye Exam Completed 02/21/2017 [id number] Mammogram Completed 07/03/2016 419510139 Diabetic Retinal Eye Exam Completed 12/29/2015 13642689 Mammogram Completed 04/11/2015 294333330 Diabetic Retinal Eye Exam Completed 12/10/2014 10643369 Mammogram Completed 03/29/2014 807346724 Diabetic Retinal Eye Exam Completed 07/15/2012 58086085 Mammogram Completed 09/19/2011 07174 ECHO Stress Test Incl Perf Contiuous ekg Monitoring Completed W/Phys Superv 07/09/2011 [id number] Mammogram Completed 05/15/2011 62575 EKG Tracing & Interpretation Completed 10/04/2009 41855 EKG Tracing & Interpretation Completed 03/14/2007 74640 EKG Tracing & Interpretation Completed 03/14/2007 80077 EKG Tracing & Interpretation Completed Encounters Type Date Location Provider Dx Diagnosis Office Visit 05/27/2018 Pulmonology And María Cooley, G47.33 Obstructive sleep 2:15p [facility], [facility]- apnea (adult) [facility] (pediatric) Z68.32 Body mass index (BMI) 32.0-32.9, adult Office Visit 03/25/2018 10:00a [facility] Andree Torres, R73.01 Impaired Medicine - N.P. fasting glucose [place] Z68.33 Body mass index (BMI) 33.0-33.9, adult Office Visit 02/24/2018 Pulmonology And María G47.33 Obstructive sleep 8:30a [facility] DARIELA Cooley RN, apnea (adult) [facility]- (pediatric) R09.02 Hypoxemia Z68.33 Body mass index (BMI) 33.0-33.9, adult Office Visit 02/21/2018 9:20a [facility] Andree Torres, Z00.00 Encntr for Medicine - N.P. general adult [place] medical exam w/o abnormal findings Z12.31 Encntr screen mammogram for malignant neoplasm of breast I10 Essential (primary) hypertension R73.01 Impaired fasting glucose J45.20 Mild intermittent asthma, uncomplicated K21.9 Gastro-esophageal reflux disease without esophagitis G47.33 Obstructive sleep apnea (adult) (pediatric) Z68.35 Body mass index (BMI) 35.0-35.9, adult Office Visit 12/27/2017 Pulmonology And María G47.33 Obstructive sleep 11:00a [facility] Cooley RN, apnea (adult) [facility] (pediatric) G47.14 Hypersomnia due to medical condition Z68.34 Body mass index (BMI) 34.0-34.9, adult Office Visit 11/08/2017 7:30a Pulmonology And Sleep Barbara Dunn, R06.83 Snoring Services Of [facility] E66.09 Other obesity due to excess calories Z68.34 Body mass index (BMI) 34.0-34.9, adult Office Visit 10/16/2017 3:40p [facility] Jose Talamantes R00.1 Bradycardia, Of [facility] Mynor, unspecified FACC Office Visit 10/14/2017 10:20a [facility] Andree Varn, R00.1 Bradycardia, Medicine - N.P. unspecified [place] R53.83 Other fatigue Office Visit 10/08/2017 9:53a [facility] R07.9 Chest pain, Assoc,nora Panda M.D. unspecified Hospitalists I10 Essential (primary) hypertension E78.5 Hyperlipidemia, unspecified Office Visit 10/07/2017 [facility] Hollis R07.9 Chest pain, 9:51a Assoc,nora James NJolantaPJolanta unspecified Hospitalists I10 Essential (primary) hypertension E78.5 Hyperlipidemia, unspecified Office Visit 02/06/2017 1:20p [facility] Andree Torres, Z00.01 Encounter for Medicine - N.P. general adult [place] medical exam w abnormal findings Z12.31 Encntr screen mammogram for malignant neoplasm of breast I10 Essential (primary) hypertension J45.30 Mild persistent asthma, uncomplicated Office Visit 07/18/2016 3:00p [facility] Andree Torres, E87.6 Hypokalemia Medicine - N.P. [place] N20.0 Calculus of kidney Office Visit 07/04/2016 8:40a [facility] N30.90 Cystitis, Assoc,nora Panda M.D. unspecified Hospitalists without hematuria N20.0 Calculus of kidney K21.9 Gastro-esophageal reflux disease without esophagitis I10 Essential (primary) hypertension Office Visit 07/03/2016 [facility] N30.90 Cystitis, 8:40a Assoc,nora Hagen, [facility] unspecified Hospitalists without hematuria N20.0 Calculus of kidney K21.9 Gastro-esophageal reflux disease without esophagitis I10 Essential (primary) hypertension Office Visit 06/06/2016 8:40a [facility] Andree Torres, I10 Essential ( primary) Medicine - N.P. hypertension [place] Z23 Encounter for immunization Office Visit 12/06/2015 9:20a [facility] Andree Torres, Z00.00 Encntr for Medicine - N.P. general adult [place] medical exam w/o abnormal findings Z12.31 Encntr screen mammogram for malignant neoplasm of breast I10 Essential (primary) hypertension R73.01 Impaired fasting glucose J45.30 Mild persistent asthma, uncomplicated Office Visit 08/01/2015 11:30a [facility] Bouchra Elizabeth, M25.551 Pain in right Of C.M.A. M.D. hip M25.552 Pain in left hip M16.0 Bilateral primary osteoarthritis of hip Office Visit 06/22/2015 3:00p [facility] Bouchra Elizabeth, M25.551 Pain in right Of C.M.A. M.D. hip M25.552 Pain in left hip Office Visit 06/06/2015 8:40a [facility] Andree Torres, Z77.22 Cntct w and Medicine - N.P. expsr to [facility] tobacco smoke (acute) (chronic) I10 Essential (primary) hypertension R73.01 Impaired fasting glucose M25.551 Pain in right hip M25.552 Pain in left hip M94.0 Chondrocostal junction syndrome [Tietze] Office Visit 12/03/2014 3:20p [facility] Andree Torres, V70.0 Examination Medicine - N.P. [facility] Routine AT Health Care Facility V72.31 Routine Ink Jet Operator Examination V76.10 Screening For Malignant Neoplasm Breast 401.1 Hypertension Benign 493.90 Asthma Unspec W/O Status Asthmaticus 790.21 Impaired Fasting Glucose 530.81 Esophageal Reflux 477.9 Rhinitis Allergic Cause Unspec Office Visit 02/04/2014 8:40a [facility] Andree Torres, 401.1 Hypertension Medicine - N.P. Benign [place] Office Visit 12/08/2013 9:00a [facility] Bing MJolanta 333.1 Tremor Essential & Services Of Anna Hauser M.D. Other Forms Office Visit 08/13/2013 9:00a [facility] Andree Torres, V70.0 Examination Medicine - N.P. [facility] Routine AT Health Care Facility V72.31 Routine Ink Jet Operator Examination 401.1 Hypertension Benign 493.90 Asthma Unspec W/O Status Asthmaticus 790.21 Impaired Fasting Glucose 465.9 URI Upper Respiratory Infections Acute Unspec Sites 333.1 Tremor Essential & Other Forms Office Visit 02/09/2013 2:00p [facility] Andree Torres, 789.07 Pain Abdominal Medicine - N.P. Generalized [place] Office Visit 01/13/2013 2:20p [facility] Vinh Herrera 780.2 Syncope & Medicine - Hardik Mckee Collapse [place] 465.9 URI Upper Respiratory Infections Acute Unspec Sites Office Visit 01/06/2013 3:40p [facility] Nikia Osman, 461.0 Sinusitis Acute Medicine - Hardik Maxillary [place] 401.1 Hypertension Benign Office Visit 07/28/2012 3:40p [facility] Andree Torres, 493.90 Asthma Unspec W/O Medicine - N.P. Status [place] Asthmaticus V06.1 Grvbrqagvn-Hkxnlcu-Xinvnvdw Combined (DTaP) Office Visit 06/26/2012 9:00a [facility] Andree Torres, V70.0 Examination Medicine - N.P. General Medical [place] Routine AT Health Care Facility V72.31 Routine Ink Jet Operator Examination V76.10 Screening For Malignant Neoplasm Breast 401.1 Hypertension Benign 790.21 Impaired Fasting Glucose 493.90 Asthma Unspec W/O Status Asthmaticus V04.81 Need For Prophylactic Vaccination & Inoculation/Influenza 780.52 Insomnia Unspecified 244.9 Hypothyroidism Other Unspec 789.2 Splenomegaly Office Visit 12/24/2011 3:40p [facility] Andree Torres, 401.1 Hypertension Medicine - N.P. Benign [place] 790.21 Impaired Fasting Glucose Office Visit 09/04/2011 4:00p [facility] Andree Torres, 401.1 Hypertension Medicine - N.P. Benign [place] 461.9 Sinusitis Acute Unspec Office Visit 08/01/2011 DO Not Use Andree Torres, 401.1 Hypertension 3:40p [facility] N.P. Benign Office Visit 06/25/2011 DO Not Use Andree Torres, V70.0 Examination [facility] Routine AT Health Care Facility 401.1 Hypertension Benign 493.90 Asthma Unspec W/O Status Asthmaticus V76.10 Screening For Malignant Neoplasm Breast 790.21 Impaired Fasting Glucose 530.81 Esophageal Reflux 476.0 Laryngitis Chronic v03.82 Streptococcus Pneumoniae Vaccination Spec Other Office Visit 05/15/2011 1:20p DO Not Use Dee Aceves, 786.59 Pain Chest [facility], FACP Other 564.1 Irritable Bowel Syndrome 427.89 Cardiac Dysrhythmia Other 401.1 Hypertension Benign V04.81 Need For Prophylactic Vaccination & Inoculation/Influenza Office Visit 04/17/2011 DO Not Use Andree 562.11 Diverticulitis 1:20p [facility] Varn, N.P. Colon W/O Hemorrhage 593.2 Cyst Kidney Acquired Office Visit 04/09/2011 DO Not Use Andree 789.04 Pain Abdominal Left 2:00p [facility] Varn, N.P. [place] Office Visit 10/24/2010 DO Not Use Andree 616.10 Vaginitis & 4:00p [facility] Varn, N.P. Vulvovaginitis Unspec Office Visit 04/28/2010 DO Not Use Andree 401.1 Hypertension Benign 8:30a [facility] Varn, N.P. 790.21 Impaired Fasting Glucose 787.3 Flatulence Eructation & Gas Pain Office Visit 01/26/2010 3:45p DO Not Use Dee Yola, 790.21 Impaired Robin Dye, FACP Fasting Glucose 401.1 Hypertension Benign Office Visit 10/27/2009 11:15a DO Not Use Dee Yola, V72.31 Routine Ink Jet Operator Robin Dye, FACP Examination 401.1 Hypertension Benign V04.81 Need For Prophylactic Vaccination & Inoculation/Influenza Office Visit 10/04/2009 DO Not Use Andree Varn, 493.90 Asthma Unspec W/O 11:30a [facility] N.P. Status Asthmaticus 401.1 Hypertension Benign 786.05 Shortness Of Breath Office Visit [facility]/03[facility] Spondylosis 3:00p Services Of Anna Chapman M.D. Cervical W/O Myelopathy Office Visit 03/28/2007 DO Not Use Deemarley Aceves, 780.79 Malaise And 10:30a Robin Dye, FACP Fatigue Other Office Visit 03/14/2007 DO Not Use Dee Yola, 401.1 Hypertension 11:00a Robin Dye, FACP Benign 780.79 Malaise And Fatigue Other 493.90 Asthma Unspec W/O Status Asthmaticus Plan of Treatment Future Appointment(s):08/27/2018 3:00 pm - María Cooley DNP, RN, ECHOCARDIOGRAPH TECHNICIAN-BC at [facility]02/23/2019 2:20 pm - Andree Torres NJenn. at [facility] Medicine [facility]08/25/2018 2:00 pm - Andree Torres N.P. at [facility]08/08/2018 - Margarita Michaud MDZ01.818 Encounter for other preprocedural examinationNew Orders:EKG, Ordered: I10 Essential (primary) hypertensionFollow up:AyqeephtigN06.5 Abnormal results of liver function studies
[2018-08-21 10:23] VITALS: BP 131/79
--- NOTE | 2018-08-21 10:47 | UC ---
Throat Pain/Nasal Mitchell HPI - HPI Summary HPI Summary: 48-year-old woman who 48-year-old woman comes to clinic today with a chief complaint of runny nose sore throat cough chest congestion fevers and body aches. She is been having chronic intermittent and sinus infection symptoms. 2 -3 weeks ago she was on a Z-Get for sinusitis. She has nasal polyps. She recently traveled to [place]. No chest congestion. She's tried acetaminophen and other [id number] medicines which helped the symptoms some but then they symptoms come back. - History of Current Complaint Chief Complaint: UCRespiratory Stated Complaint: SINUS ISSUE Time Seen by Provider: 08/21/18 10:31 Hx Last Menstrual Period: 08/05 Pain Intensity: 0 - Allergies/Home Medications Allergies/Adverse Reactions: Allergies Allergy/AdvReac Type Severity Reaction Status Date / Time Penicillins Allergy Rash Verified 08/21/18 10:23 bee stings Allergy Severe Anaphylatic Uncoded 08/21/18 10:23 Shock SEASONAL ALLERGIES Allergy SINUS AND Uncoded 08/21/18 10:23 EYE PROBLEMS PMH/Surg Hx/FS Hx/Imm Hx Previously Healthy: Yes Cardiovascular History: Hypertension Respiratory History: Asthma GI/ History: Gastroesophageal Reflux - Surgical History Surgical History: Yes Surgery Procedure, Year, and Place: 4 Right knee surgeries, most recent 07/2010 , performed at [facility],. [place] [facility] [place] [facility] [place] [facility] [place] - FX - Family History Known Family History: Positive: None, Cardiac Disease - Father, Hypertension, Diabetes, Other - Father had lung cancer - Social History Alcohol Use: Occasionally Substance Use Type: None Smoking Status (MU): Never Smoked Tobacco - Immunization History Most Recent Influenza Vaccination: 2016 Most Recent Tetanus Shot: unknown Most Recent Pneumonia Vaccination: unknown Review of Systems All Other Systems Reviewed And Are Negative: Yes Constitutional: Positive: Fever, Chills Skin: Positive: Negative Eyes: Positive: Negative ENT: Positive: Sore Throat, Nasal Discharge, Sinus Congestion, Sinus Pain/ Tenderness Respiratory: Positive: Cough Cardiovascular: Positive: Negative Gastrointestinal: Positive: Negative Motor: Positive: Negative Neurovascular: Positive: Negative Musculoskeletal: Positive: Myalgia Neurological: Positive: Negative Psychological: Positive: Negative Is Patient Immunocompromised?: No Physical Exam Triage Information Reviewed: Yes Appearance: No Pain Distress, Well-Nourished, Ill-Appearing - MILD Vital Signs: Initial Vital Signs Temp 97.9 F 08/21/18 10:20 Pulse 90 08/21/18 10:20 Resp 17 08/21/18 10:20 BP 131/79 08/21/18 10:20 Pulse Ox 98 08/21/18 10:20 Vital Signs Reviewed: Yes Eye Exam: Normal Eyes: Positive: Conjunctiva Clear ENT: Positive: Pharyngeal erythema, Nasal congestion, Nasal drainage, TMs normal Neck exam: Normal Neck: Positive: Supple Respiratory: Positive: Lungs clear, Normal breath sounds, No respiratory distress Cardiovascular: Positive: RRR Musculoskeletal Exam: Normal Musculoskeletal: Positive: Strength Intact, ROM Intact Neurological Exam: Normal Neurological: Positive: Alert, Muscle Tone Normal Psychological Exam: Normal Psychological: Positive: Age Appropriate Behavior Skin Exam: Normal Throat Pain/Nasal Course/Dx - Course Course Of Treatment: Influenza A is positive influenza a is positive. This started Tamiflu and continue symptomatically treatment. Patient has surgery scheduled for 4 days from now and with the possibility of a concurrent sinusitis but never improved from the symptoms 2 weeks ago we will treat with Omnicef. Patient's to get reevaluated if she worsens or any questions or concerns. - Differential Dx/Diagnosis Provider Diagnosis: Influenza, Sinusitis Discharge - Sign-Out/Discharge Documenting (check all that apply): Patient Departure All imaging exams completed and their final reports reviewed: No Studies - Discharge Plan Condition: Stable Disposition: HOME Prescriptions: Cefdinir cap (NF) [Cefdinir 300 MG cap (NF)] 300 mg PO BID #20 cap Oseltamivir CAP* [Tamiflu CAP*] 75 mg PO BID #10 cap Patient Education Materials: Sinusitis (ED), Influenza (ED) Referrals: Andree Torres NP [Primary Care Provider] - Additional Instructions: FOLLOW UP WITH YOUR DOCTOR IF NOT COMPLETELY IMPROVED. GET RECHECKED FOR ANY WORSENING OF YOUR CONDITION OR QUESTIONS OR CONCERNS. - Billing Disposition and Condition Condition: STABLE Disposition: Home
== END 2018-08-21 10:56 | disposition home or self-care (01) ==
LOC: UCEAST 10:16
DX: J11.1 Influenza due to unidentified influenza virus with other respiratory manifestations (principal); J32.9 Chronic sinusitis, unspecified; I10 Essential (primary) hypertension; J45.909 Unspecified asthma, uncomplicated; Z88.0 Allergy status to penicillin; Z91.030 Bee allergy status; Z91.09 Other allergy status, other than to drugs and biological substances
CPT/HCPCS: 87651; 99212; G0463

== ENCOUNTER 2019-06-16 16:36 | Emergency (ER) | payer BC ==
--- NOTE | 2019-06-16 16:45 | UC ---
Throat Pain/Nasal Mitchell HPI - HPI Summary HPI Summary: Patient is a 48-year-old female presenting with nasal congestion, postnasal drip , and productive coughing that keeps her awake at night 2 weeks. Notes maxillary sinus tenderness radiates into her teeth. Notes that she pulled a muscle in her abdomen from coughing so hard. Denies ear pain. Denies sore throat. Denies shortness of breath and wheezing. Denies n/v/d and abdominal pain. Notes intermittent chills and cold sweats but denies fevers. Patient is taking [id number] cough and cold medications without relief. Patient has history of nasal polyps and recurrent sinusitis. - History of Current Complaint Stated Complaint: SINUS COMPLAINT Hx Obtained From: Patient Hx Last Menstrual Period: 08/05 Onset/Duration: Gradual Onset, Lasting Weeks - Allergies/Home Medications Allergies/Adverse Reactions: Allergies Allergy/AdvReac Type Severity Reaction Status Date / Time Penicillins Allergy Rash Verified 06/16/19 16:53 bee stings Allergy Severe Anaphylatic Uncoded 06/16/19 16:53 Shock SEASONAL ALLERGIES Allergy SINUS AND Uncoded 06/16/19 16:53 EYE PROBLEMS Home Medications: Home Medications Dextromethorphan Hb/Doxylamine [Robitussin Nighttime Cough Dm] 1 dose PO QPM PRN 06/16/19 [History Confirmed 06/16/19] Guaifen/Phenyleph/Acetaminophn [Tylenol Sinus Severe Caplet] 2 each PO Q4H PRN 06/16/19 [History Confirmed 06/16/19] PMH/Surg Hx/FS Hx/Imm Hx Cardiovascular History: Hypertension Respiratory History: Asthma - exercise-induced - Surgical History Surgical History: Yes Surgery Procedure, Year, and Place: 4 Right knee surgeries, most recent 07/2010 , performed at [facility],. [place] [facility] [place],. [place] [facility] [place] [facility] [place] - FX - Family History Known Family History: Positive: None, Cardiac Disease - Father, Hypertension, Diabetes, Other - Father had lung cancer - Social History Alcohol Use: Occasionally Substance Use Type: None Smoking Status (MU): Never Smoked Tobacco - Immunization History Most Recent Influenza Vaccination: 2016 Most Recent Tetanus Shot: unknown Most Recent Pneumonia Vaccination: unknown Review of Systems All Other Systems Reviewed And Are Negative: Yes Constitutional: Positive: Chills. Negative: Fever ENT: Positive: Sinus Congestion, Sinus Pain/Tenderness. Negative: Sore Throat, Ear Ache Respiratory: Positive: Cough. Negative: Shortness Of Breath Cardiovascular: Positive: Negative. Negative: Palpitations, Chest Pain Gastrointestinal: Positive: Negative. Negative: Abdominal Pain, Vomiting, Nausea Musculoskeletal: Positive: Negative Neurological: Positive: Negative Physical Exam Triage Information Reviewed: Yes Appearance: Well-Appearing, No Pain Distress, Well-Nourished Vital Signs: Vital Signs (72 hours) 06/16/19 16:46 Temperature 97.8 F Pulse Rate 73 Respiratory 18 Rate Blood Pressure 133/90 (mmHg) O2 Sat by Pulse 98 Oximetry Vital Signs Reviewed: Yes Eyes: Positive: Conjunctiva Clear ENT: Positive: Hearing grossly normal, Pharynx normal, Nasal congestion, Nasal drainage - PND, TMs normal, Sinus tenderness - maxillary, Uvula midline. Negative: Tonsillar swelling, Tonsillar exudate Neck exam: Normal Neck: Positive: Supple, Nontender, No Lymphadenopathy Respiratory Exam: Normal Respiratory: Positive: Lungs clear, Normal breath sounds, No respiratory distress. Negative: Crackles, Rhonchi, Stridor, Wheezing Cardiovascular Exam: Normal Cardiovascular: Positive: RRR Neurological: Positive: Alert Psychological: Positive: Age Appropriate Behavior Throat Pain/Nasal Course/Dx - Course Course Of Treatment: I treated with doxy for sinusitis d/t patient's penicillin allergy. I also treated with tessalon perles for cough relief. Instructed to continue with symptomatic treatment and to follow up with PCP if symptoms persist. Patient voiced understanding and agreed with the treatment plan. - Differential Dx/Diagnosis Provider Diagnosis: Sinusitis, Acute bronchitis Discharge ED - Sign-Out/Discharge Documenting (check all that apply): Patient Departure All imaging exams completed and their final reports reviewed: No Studies - Discharge Plan Condition: Stable Disposition: HOME Prescriptions: Benzonatate CAP* [Tessalon 100 MG CAP*] 100 mg PO TID PRN #21 cap PRN Reason: Cough DOXYcycline CAP(*) [DOXYcycline 100MG CAP(*)] 100 mg PO BID #14 cap Patient Education Materials: Sinusitis (ED), Acute Bronchitis (ED) Referrals: Andree Torres STRUCTURAL ENGINEERING PROJECT MANAGER [Primary Care Provider] - If Needed Additional Instructions: As discussed, take Doxycycline for the treatment of your sinusitis. Take the Tessalon Perles as prescribed to help alleviate coughing. You may also take an over the counter decongestant as directed to help reduce mucus production. You may use over the counter nasal spray such as Flonase as directed for symptomatic relief. You may take ibuprofen as directed for pain relief. Get plenty of rest and fluids. Follow up with your primary care doctor if your symptoms worsen or do not resolve within 7-10 days. - Billing Disposition and Condition Condition: STABLE Disposition: Home
[2019-06-16 16:53] VITALS: BP 133/90
== END 2019-06-16 17:15 | disposition home or self-care (01) ==
LOC: UCCORT 16:36
DX: J32.9 Chronic sinusitis, unspecified (principal); J20.9 Acute bronchitis, unspecified; I10 Essential (primary) hypertension; J45.998 Other asthma; Z88.0 Allergy status to penicillin; Z91.030 Bee allergy status; Z91.09 Other allergy status, other than to drugs and biological substances
CPT/HCPCS: 99212; G0463